=== PATIENT | male | born 1950 | race Caucasian/White ===

== ENCOUNTER 2017-03-24 06:28 | Outpatient (CLI) | payer MEDICARE, OTHER ==
[~2017-03-24] VITALS: Ht 177.8 cm; Wt 82.6 kg
[~2017-03-24 06:28] MED LIST: ATOR1TAB21 PO; DIGO0.12 PO; DIGO0.25 PO; ELIQ5TAB PO; LISI20TA3 PO; METF500T13 PO; RANI150C PO; TYLE650T35 PO
[2017-03-24] MEDS ORDERED: NS 1,000 ML IV ONE (07:15)
[2017-03-24] MEDS ORDERED: PROPOFOL 200 MG/20 ML VIAL As Ordered ONE (07:35)
[2017-03-24] MEDS ORDERED: LIDOCAINE 2% INJ 100 MG/5 ML SDV (FOR ANES.) As Ordered ONE (07:35)
--- NOTE | 2017-03-24 07:51 | ROOR ---
Patient Name: Carlos Eduardo Ballard Procedure Date: 03/24/2017 7:33 AM Date of : 1950 Age: 67 Room: [facility] Gender: Male Note Status: Finalized Procedure: Colonoscopy Indications: Screening in patient at increased risk: Colorectal cancer in brother before age 60, High risk colon cancer surveillance: Personal history of colonic polyps, Last colonoscopy: September 2010 Providers: Shaw DALEY MD Referring MD: GARFIELD JO Requesting Provider: Medicines: Monitored Anesthesia Care Complications: No immediate complications. Procedure: Pre-Anesthesia Assessment: - The heart rate, respiratory rate, oxygen saturations, blood pressure, adequacy of pulmonary ventilation, and response to care were monitored throughout the procedure. The Colonoscope was introduced through the anus and advanced to the cecum, identified by appendiceal orifice and ileocecal valve. The colonoscopy was performed without difficulty. The patient tolerated the procedure well. The quality of the bowel preparation was good. Findings: The perianal and digital rectal examinations were normal. The entire examined colon appeared normal. Impression: - The entire examined colon is normal. - No specimens collected. Recommendation: - Resume Eliquis (apixaban) at prior dose today. - Repeat colonoscopy in 5 years for screening purposes. Shaw Daley MD Shaw DALEY MD 03/24/2017 7:50:37 AM This report has been signed electronically. Number of Addenda: 0 Note Initiated On: 03/24/2017 7:33 AM Estimated Blood Loss: Estimated blood loss: none.
[2017-03-24 08:20] VITALS: BP 134/87
== END 2017-03-24 08:21 | disposition home or self-care (01) ==
LOC: M OPP 06:28
PROVIDERS: ATTEND Internal Medicine Gastroenterology
DX: Z12.11 Encounter for screening for malignant neoplasm of colon (principal); Z86.010 Personal history of colon polyps; Z80.0 Family history of malignant neoplasm of digestive organs; I48.91 Unspecified atrial fibrillation; E11.9 Type 2 diabetes mellitus without complications; I10 Essential (primary) hypertension; K21.9 Gastro-esophageal reflux disease without esophagitis; E78.00 Pure hypercholesterolemia, unspecified; Z79.84 Long term (current) use of oral hypoglycemic drugs; Z79.899 Other long term (current) drug therapy

== ENCOUNTER → 2018-05-10 | Outpatient (REF) | payer MEDICARE, OTHER ==
[2018-05-10 16:43] LABS: BASO % 0.1 % (0.0-1.0); EOS % 0.1 % (0.0-3.0); HEMATOCRIT 48.8 % (42.0-52.0); HEMOGLOBIN 16.4 g/dl (13.5-17.5); IMMATURE GRANULOCYTE % 0.4 % (0-3.0); LYMPH % 29.8 % (24.0-44.0); MEAN CORPUSCULAR HGB CONC 33.6 g/dl (32.0-36.5); MEAN CORPUSCULAR VOLUME 95.3 fl (80.0-96.0); MONO # 0.6 10^3/uL (0.0-0.8); MONO % 9.5 % (0.0-5.0); NEUTROPHILS % 60.1 % (36.0-66.0); PLATELET COUNT, AUTOMATED 305 10^3/uL (150-450); RED BLOOD COUNT 5.12 10^6/uL (4.30-6.10); RED CELL DISTRIBUTION WIDTH 13.2 % (11.5-14.5); WHITE BLOOD COUNT 6.7 10^3/uL (4.0-10.0)
[2018-05-10 17:09] LABS: ALBUMIN 4.1 GM/DL (3.2-5.2); ALBUMIN/GLOBULIN RATIO 1.11 (1.00-1.93); ALKALINE PHOSPHATASE 67 U/L (45-117); ALT/SGPT 26 U/L (12-78); ANION GAP 6 MEQ/L (8-16); AST/SGOT 20 U/L (7-37); BILIRUBIN,TOTAL 0.3 MG/DL (0.2-1.0); BLOOD UREA NITROGEN 15 MG/DL (7-18); C REACTIVE PROTEIN QUANTITATIV 0.38 MG/DL (0.00-0.30); CALCIUM LEVEL 9.1 MG/DL (8.8-10.2); CARBON DIOXIDE LEVEL 32 MEQ/L (21-32); CHLORIDE LEVEL 101 MEQ/L (98-107); CREATININE FOR GFR 0.93 MG/DL (0.70-1.30); GLOMERULAR FILTRATION RATE > 60.0 (>49); GLUCOSE, FASTING 79 MG/DL (70-100); POTASSIUM SERUM 4.4 MEQ/L (3.5-5.1); SODIUM LEVEL 139 MEQ/L (136-145); TOTAL PROTEIN 7.8 GM/DL (6.4-8.2)
[2018-05-10 19:05] LABS: ERYTHROCYTE SEDIMENTATION RATE 3 mm/hr (0-20)
== END ==
LOC: M SFHCLERA 13:56
DX: M19.90 Unspecified osteoarthritis, unspecified site (principal); R76.8 Other specified abnormal immunological findings in serum; I73.00 Raynaud's syndrome without gangrene
CPT/HCPCS: 80053

== ENCOUNTER → 2018-05-10 | Outpatient (CLI) | payer MEDICARE, OTHER | LOC: M LRY 14:08 | DX: M25.741 Osteophyte, right hand (principal); M25.742 Osteophyte, left hand; R93.7 Abnormal findings on diagnostic imaging of other parts of musculoskeletal system; M19.041 Primary osteoarthritis, right hand; M19.042 Primary osteoarthritis, left hand | CPT/HCPCS: 73130; 80053 ==

== ENCOUNTER → 2018-06-28 | Outpatient (REF) | payer MEDICARE, OTHER | LOC: M SFHCPLAZ 16:13 | PROVIDERS: ATTEND Internal Medicine Rheumatology | DX: M05.79 Rheumatoid arthritis with rheumatoid factor of multiple sites without organ or systems involvement (principal) ==

== ENCOUNTER 2018-07-13 21:06 | Emergency (ER) | payer MEDICARE, OTHER ==
[~2018-07-13] VITALS: Ht 177.8 cm; Wt 82.7 kg
[2018-07-13] MEDS ORDERED: FOLI800C PO (21:15)
[2018-07-13] MEDS ORDERED: METH2.5T48 PO (21:15)
[2018-07-13] MEDS ORDERED: AMLO25TA PO (21:15)
[2018-07-13] MEDS ORDERED: AUGM875T28 PO (21:35)
[2018-07-13] MEDS ORDERED: AUGMENTIN 875 MG TAB PO ONE (21:45)
[2018-07-13] MEDS ORDERED: NORCO 5/325MG TABLET (BULK FOR ED) PO ONE (21:45)
[2018-07-13 21:49] VITALS: BP 150/81
== END 2018-07-13 21:57 | disposition home or self-care (01) ==
LOC: M ED 21:06
DX: K04.7 Periapical abscess without sinus (principal); I48.91 Unspecified atrial fibrillation; I10 Essential (primary) hypertension; Z79.01 Long term (current) use of anticoagulants; Z79.899 Other long term (current) drug therapy

== ENCOUNTER → 2018-07-19 | Outpatient (CLI) | payer MEDICARE, OTHER ==
[~2018-07-19] MED LIST changes: +AMLO25TA PO; +AUGM875T28 PO; +FOLI800C PO; +METH2.5T48 PO
[2018-07-19 10:52] LABS: BASO % 0.2 % (0.0-1.0); EOS # 0.1 10^3/uL (0.0-0.50); HEMATOCRIT 43.4 % (42.0-52.0); LYMPH # 2.1 10^3/uL (1.5-4.5); MEAN CORPUSCULAR HEMOGLOBIN 32.3 pg (27.0-33.0); MEAN CORPUSCULAR HGB CONC 34.6 g/dl (32.0-36.5); MEAN CORPUSCULAR VOLUME 93.5 fl (80.0-96.0); MONO # 0.7 10^3/uL (0.0-0.8); MONO % 11.3 % (0.0-5.0); NEUTROPHILS # 3.1 10^3/uL (1.8-7.7); NEUTROPHILS % 52.3 % (36.0-66.0); PLATELET COUNT, AUTOMATED 303 10^3/uL (150-450); RED BLOOD COUNT 4.64 10^6/uL (4.30-6.10); WHITE BLOOD COUNT 5.9 10^3/uL (4.0-10.0)
[2018-07-19 11:18] LABS: ERYTHROCYTE SEDIMENTATION RATE 27 mm/hr (0-20)
[2018-07-19 11:22] LABS: ALBUMIN 3.9 GM/DL (3.2-5.2); ALT/SGPT 21 U/L (12-78); BILIRUBIN,TOTAL 0.4 MG/DL (0.2-1.0); BLOOD UREA NITROGEN 19 MG/DL (7-18); CALCIUM LEVEL 8.9 MG/DL (8.8-10.2); CARBON DIOXIDE LEVEL 30 MEQ/L (21-32); CHLORIDE LEVEL 102 MEQ/L (98-107); GLOMERULAR FILTRATION RATE > 60.0 (>49); GLUCOSE, FASTING 109 MG/DL (70-100); POTASSIUM SERUM 4.3 MEQ/L (3.5-5.1); SODIUM LEVEL 137 MEQ/L (136-145); TOTAL PROTEIN 7.4 GM/DL (6.4-8.2)
[2018-07-19 15:00] LABS: HEPATITIS B SURFACE ANTIGEN NEGATIVE (NEGATIVE)
== END ==
LOC: M LAB 10:20
PROVIDERS: ATTEND Internal Medicine Rheumatology
DX: M05.79 Rheumatoid arthritis with rheumatoid factor of multiple sites without organ or systems involvement (principal)

== ENCOUNTER → 2018-08-16 | Outpatient (CLI) | payer MEDICARE, OTHER ==
[2018-08-16 13:30] LABS: BASO % 0.3 % (0.0-1.0); EOS % 0.6 % (0.0-3.0); HEMATOCRIT 43.9 % (42.0-52.0); HEMOGLOBIN 15.1 g/dl (13.5-17.5); LYMPH % 30.5 % (24.0-44.0); MEAN CORPUSCULAR HEMOGLOBIN 32.5 pg (27.0-33.0); MEAN CORPUSCULAR HGB CONC 34.4 g/dl (32.0-36.5); MEAN CORPUSCULAR VOLUME 94.4 fl (80.0-96.0); MONO # 0.6 10^3/uL (0.0-0.8); MONO % 9.1 % (0.0-5.0); NEUTROPHILS # 3.9 10^3/uL (1.8-7.7); PLATELET COUNT, AUTOMATED 279 10^3/uL (150-450); RED BLOOD COUNT 4.65 10^6/uL (4.30-6.10); WHITE BLOOD COUNT 6.6 10^3/uL (4.0-10.0)
[2018-08-16 13:46] LABS: ALBUMIN 3.9 GM/DL (3.2-5.2); ALT/SGPT 33 U/L (12-78); BILIRUBIN,TOTAL 0.4 MG/DL (0.2-1.0); BLOOD UREA NITROGEN 19 MG/DL (7-18); C REACTIVE PROTEIN QUANTITATIV 0.37 MG/DL (0.00-0.30); CALCIUM LEVEL 8.9 MG/DL (8.8-10.2); CARBON DIOXIDE LEVEL 29 MEQ/L (21-32); CHLORIDE LEVEL 102 MEQ/L (98-107); CREATININE FOR GFR 1.11 MG/DL (0.70-1.30); GLOMERULAR FILTRATION RATE > 60.0 (>49); GLUCOSE, FASTING 98 MG/DL (70-100); POTASSIUM SERUM 4.2 MEQ/L (3.5-5.1); SODIUM LEVEL 138 MEQ/L (136-145); TOTAL PROTEIN 7.6 GM/DL (6.4-8.2)
[2018-08-16 14:10] LABS: ERYTHROCYTE SEDIMENTATION RATE 13 mm/hr (0-20)
== END ==
LOC: M LAB 12:10
PROVIDERS: ATTEND Internal Medicine Rheumatology
DX: M05.79 Rheumatoid arthritis with rheumatoid factor of multiple sites without organ or systems involvement (principal)

== ENCOUNTER → 2018-10-18 | Outpatient (CLI) | payer MEDICARE, OTHER ==
[2018-10-18 13:31] LABS: BASO % 0.3 % (0.0-1.0); EOS # 0.1 10^3/uL (0.0-0.50); EOS % 1.2 % (0.0-3.0); HEMATOCRIT 41.5 % (42.0-52.0); HEMOGLOBIN 14.1 g/dl (13.5-17.5); LYMPH # 2.9 10^3/uL (1.5-4.5); MEAN CORPUSCULAR HEMOGLOBIN 33.7 pg (27.0-33.0); MEAN CORPUSCULAR VOLUME 99.3 fl (80.0-96.0); MONO # 0.8 10^3/uL (0.0-0.8); MONO % 11.7 % (0.0-5.0); NEUTROPHILS # 2.8 10^3/uL (1.8-7.7); NEUTROPHILS % 42.6 % (36.0-66.0); PLATELET COUNT, AUTOMATED 279 10^3/uL (150-450); RED BLOOD COUNT 4.18 10^6/uL (4.30-6.10); WHITE BLOOD COUNT 6.6 10^3/uL (4.0-10.0)
[2018-10-18 14:58] LABS: ALBUMIN 3.8 GM/DL (3.2-5.2); ALT/SGPT 24 U/L (12-78); BILIRUBIN,TOTAL 0.3 MG/DL (0.2-1.0); BLOOD UREA NITROGEN 14 MG/DL (7-18); C REACTIVE PROTEIN QUANTITATIV 0.42 MG/DL (0.00-0.30); CALCIUM LEVEL 9.1 MG/DL (8.8-10.2); CARBON DIOXIDE LEVEL 28 MEQ/L (21-32); CHLORIDE LEVEL 105 MEQ/L (98-107); CREATININE FOR GFR 1.07 MG/DL (0.70-1.30); GLOMERULAR FILTRATION RATE > 60.0 (>49); GLUCOSE, FASTING 90 MG/DL (70-100); POTASSIUM SERUM 4.1 MEQ/L (3.5-5.1); SODIUM LEVEL 141 MEQ/L (136-145); TOTAL PROTEIN 7.1 GM/DL (6.4-8.2)
[2018-10-18 15:13] LABS: ERYTHROCYTE SEDIMENTATION RATE 19 mm/hr (0-20)
== END ==
LOC: M LAB 12:24
PROVIDERS: ATTEND Internal Medicine Rheumatology
DX: M05.79 Rheumatoid arthritis with rheumatoid factor of multiple sites without organ or systems involvement (principal)

== ENCOUNTER → 2018-11-14 | Outpatient (CLI) | payer MEDICARE, OTHER ==
[2018-11-14 11:52] LABS: CHOLESTEROL RISK RATIO 6.073 (<5)
== END ==
LOC: M LAB 10:09
PROVIDERS: ATTEND Physician Assistant
DX: E78.00 Pure hypercholesterolemia, unspecified (principal)

== ENCOUNTER → 2019-03-19 | Outpatient (CLI) | payer MEDICARE, OTHER ==
[~2019-03-19] MED LIST changes: +LISI20TA20 PO; -LISI20TA3 PO
[2019-03-19 11:44] LABS: BASO % 0.3 % (0.0-1.0); EOS # 0.1 10^3/uL (0.0-0.5); EOS % 1.1 % (0.0-3.0); HEMATOCRIT 43.7 % (42.0-52.0); HEMOGLOBIN 15.2 g/dl (13.5-17.5); LYMPH # 2.7 10^3/uL (1.5-5.0); LYMPH % 41.3 % (24.0-44.0); MEAN CORPUSCULAR HEMOGLOBIN 33.4 pg (27.0-33.0); MEAN CORPUSCULAR HGB CONC 34.8 g/dl (32.0-36.5); MONO # 0.7 10^3/uL (0.0-0.8); MONO % 10.7 % (0.0-5.0); NEUTROPHILS % 46.4 % (36.0-66.0); PLATELET COUNT, AUTOMATED 170 10^3/uL (150-450); RED BLOOD COUNT 4.55 10^6/uL (4.30-6.10); WHITE BLOOD COUNT 6.4 10^3/uL (4.0-10.0)
[2019-03-19 12:17] LABS: ALBUMIN 3.8 GM/DL (3.2-5.2); BILIRUBIN,TOTAL 0.5 MG/DL (0.2-1.0); C REACTIVE PROTEIN QUANTITATIV 0.33 MG/DL (0.00-0.30); CALCIUM LEVEL 9.5 MG/DL (8.8-10.2); CREATININE FOR GFR 1.28 MG/DL (0.70-1.30); GLOMERULAR FILTRATION RATE 59.1 (>42); POTASSIUM SERUM 4.3 MEQ/L (3.5-5.1); TOTAL PROTEIN 7.4 GM/DL (6.4-8.2)
[2019-03-19 12:27] LABS: ERYTHROCYTE SEDIMENTATION RATE 11 mm/hr (0-20)
== END ==
LOC: M LAB 10:41
PROVIDERS: ATTEND Internal Medicine Rheumatology
DX: M05.79 Rheumatoid arthritis with rheumatoid factor of multiple sites without organ or systems involvement (principal)

== ENCOUNTER → 2019-07-09 | Outpatient (REF) | payer MEDICARE, OTHER ==
[~2019-07-09] MED LIST changes: +FAMO1TAB26 PO
[2019-07-09 13:17] LABS: BASO % 0.3 % (0.0-1.0); EOS # 0.1 10^3/uL (0.0-0.5); EOS % 0.9 % (0.0-3.0); HEMATOCRIT 45.4 % (42.0-52.0); LYMPH % 45.4 % (24.0-44.0); MEAN CORPUSCULAR HEMOGLOBIN 32.7 pg (27.0-33.0); MEAN CORPUSCULAR VOLUME 98.9 fl (80.0-96.0); MONO # 0.8 10^3/uL (0.0-0.8); NEUTROPHILS # 2.7 10^3/uL (1.5-8.5); NEUTROPHILS % 41.1 % (36.0-66.0); PLATELET COUNT, AUTOMATED 145 10^3/uL (150-450); RED BLOOD COUNT 4.59 10^6/uL (4.30-6.10); WHITE BLOOD COUNT 6.7 10^3/uL (4.0-10.0)
[2019-07-09 13:27] LABS: ERYTHROCYTE SEDIMENTATION RATE QNS mm/hr (0-20)
[2019-07-09 15:01] LABS: ALBUMIN 4.1 GM/DL (3.2-5.2); ALT/SGPT 33 U/L (12-78); BILIRUBIN,TOTAL 0.4 MG/DL (0.2-1.0); BLOOD UREA NITROGEN 21 MG/DL (7-18); C REACTIVE PROTEIN QUANTITATIV < 0.30 MG/DL (0.00-0.30); CALCIUM LEVEL 9.2 MG/DL (8.8-10.2); CARBON DIOXIDE LEVEL 25 MEQ/L (21-32); CHLORIDE LEVEL 102 MEQ/L (98-107); CREATININE FOR GFR 1.13 MG/DL (0.70-1.30); GLOMERULAR FILTRATION RATE > 60.0 (>42); GLUCOSE, FASTING 129 MG/DL (70-100); HEPATITIS B SURFACE ANTIGEN NEGATIVE (NEGATIVE); HEPATITIS C VIRUS ABY INDEX < 0.0 INDEX (<0.8); POTASSIUM SERUM 4.4 MEQ/L (3.5-5.1); SODIUM LEVEL 137 MEQ/L (136-145); TOTAL PROTEIN 7.8 GM/DL (6.4-8.2)
== END ==
LOC: M SFHCRHEU 10:18
PROVIDERS: ATTEND Internal Medicine
DX: M05.79 Rheumatoid arthritis with rheumatoid factor of multiple sites without organ or systems involvement (principal)
CPT/HCPCS: 36415; 80053; 85025; 86140; 86480; 86704; 86803; 87340; G0463

== ENCOUNTER 2019-07-20 07:46 | Outpatient (CLI) | payer MEDICARE, OTHER ==
[~2019-07-20] VITALS: Ht 177.8 cm; Wt 87.0 kg
[~2019-07-20 07:46] MED LIST changes: -FAMO1TAB26 PO
[2019-07-20 07:57] VITALS: BP 139/80
[2019-07-20] MEDS ORDERED: diphenhydrAMINE 25 MG CAP PO ONE (08:00)
[2019-07-20] MEDS ORDERED: FAMO1TAB26 PO (08:09)
[2019-07-20] MEDS ORDERED: methylPREDNISolone INJ 125 MG/2 ML VIAL (J2930) IV PRN (08:30)
[2019-07-20] MEDS ORDERED: EPINEPHrine INJ 1 MG/ML 1ML VIAL IM PRN (08:30)
[2019-07-20] MEDS ORDERED: diphenhydrAMINE INJ 50MG/ML VIAL (J1200) IV PRN (08:30)
[2019-07-20] MEDS ORDERED: ABATACEPT 750 MG OVER 30 MINUTES IV ONE ×2 (08:30)
[2019-07-20] MEDS ORDERED: NS 1,000 ML IV SCH (08:30)
[2019-07-20] MEDS ORDERED: ACETAMINOPHEN 650MG ER TAB (TYLENOL ARTHRITIS) PO ONE (08:30)
[2019-07-20] MEDS ORDERED: ALBUTEROL SULFATE 2.5 MG/0.5 ML INH NEB SOLN INH PRN (08:30)
[2019-07-20 09:30] VITALS: BP 131/76
[2019-07-20 10:10] VITALS: BP 122/74
== END 2019-07-20 10:10 | disposition home or self-care (01) ==
LOC: M INFU 07:46
PROVIDERS: ATTEND Internal Medicine
DX: M05.79 Rheumatoid arthritis with rheumatoid factor of multiple sites without organ or systems involvement (principal)
CPT/HCPCS: 96365; J0129

== ENCOUNTER 2019-08-03 07:50 | Outpatient (CLI) | payer MEDICARE, OTHER ==
[~2019-08-03] VITALS: Ht 221 cm; Wt 87.0 kg
[~2019-08-03 07:50] MED LIST changes: +FAMO1TAB26 PO
[2019-08-03 07:55] VITALS: BP 125/74
[2019-08-03] MEDS ORDERED: ACETAMINOPHEN TAB 650MG DOSE (2X325MG) PO ONE (08:15)
[2019-08-03] MEDS ORDERED: diphenhydrAMINE 25 MG CAP PO ONE (08:15)
[2019-08-03] MEDS ORDERED: methylPREDNISolone INJ 125 MG/2 ML VIAL (J2930) IV PRN (09:00)
[2019-08-03] MEDS ORDERED: ABATACEPT 750 MG OVER 30 MINUTES IV ONE ×2 (09:00)
[2019-08-03] MEDS ORDERED: EPINEPHrine INJ 1 MG/ML 1ML VIAL IM PRN (09:00)
[2019-08-03] MEDS ORDERED: ALBUTEROL SULFATE 2.5 MG/0.5 ML INH NEB SOLN INH PRN (09:00)
[2019-08-03] MEDS ORDERED: diphenhydrAMINE INJ 50MG/ML VIAL (J1200) IV PRN (09:00)
[2019-08-03 09:30] VITALS: BP 134/76
== END 2019-08-03 09:30 | disposition home or self-care (01) ==
LOC: M INFU 07:50
PROVIDERS: ATTEND Internal Medicine
DX: M05.79 Rheumatoid arthritis with rheumatoid factor of multiple sites without organ or systems involvement (principal)
CPT/HCPCS: 96365; J0129

== ENCOUNTER 2019-08-17 07:56 | Outpatient (CLI) | payer MEDICARE, OTHER ==
[~2019-08-17] VITALS: Ht 177.8 cm; Wt 87.0 kg
[2019-08-17] MEDS ORDERED: ALBUTEROL SULFATE 2.5 MG/0.5 ML INH NEB SOLN INH PRN (08:00)
[2019-08-17] MEDS ORDERED: ABATACEPT 750 MG OVER 30 MINUTES IV ONE ×2 (08:00)
[2019-08-17] MEDS ORDERED: EPINEPHrine INJ 1 MG/ML 1ML VIAL IM PRN (08:00)
[2019-08-17] MEDS ORDERED: diphenhydrAMINE INJ 50MG/ML VIAL (J1200) IV PRN (08:00)
[2019-08-17] MEDS ORDERED: methylPREDNISolone INJ 125 MG/2 ML VIAL (J2930) IV PRN (08:00)
[2019-08-17 08:12] VITALS: BP 153/76
[2019-08-17] MEDS ORDERED: diphenhydrAMINE 25 MG CAP PO ONE (08:15)
[2019-08-17] MEDS ORDERED: ACETAMINOPHEN TAB 650MG DOSE (2X325MG) PO ONE (08:15)
[2019-08-17] MEDS ORDERED: NS 1,000 ML IV PRN (08:15)
[2019-08-17 09:15] VITALS: BP 133/78
== END 2019-08-17 09:15 | disposition home or self-care (01) ==
LOC: M INFU 07:56
PROVIDERS: ATTEND Internal Medicine
DX: M05.79 Rheumatoid arthritis with rheumatoid factor of multiple sites without organ or systems involvement (principal)
CPT/HCPCS: 96365; J0129

== ENCOUNTER → 2019-09-07 | Outpatient (CLI) | payer MEDICARE, OTHER ==
[2019-09-07 11:10] LABS: BASO % 0.3 % (0.0-1.0); EOS # 0.1 10^3/uL (0.0-0.5); HEMATOCRIT 44.5 % (42.0-52.0); HEMOGLOBIN 15.2 g/dl (13.5-17.5); LYMPH # 3.7 10^3/uL (1.5-5.0); LYMPH % 46.9 % (24.0-44.0); MEAN CORPUSCULAR HEMOGLOBIN 32.8 pg (27.0-33.0); MEAN CORPUSCULAR HGB CONC 34.2 g/dl (32.0-36.5); MEAN CORPUSCULAR VOLUME 96.1 fl (80.0-96.0); MONO # 0.9 10^3/uL (0.0-0.8); MONO % 10.9 % (0.0-5.0); NEUTROPHILS # 3.2 10^3/uL (1.5-8.5); NEUTROPHILS % 40.6 % (36.0-66.0); PLATELET COUNT, AUTOMATED 205 10^3/uL (150-450); RED BLOOD COUNT 4.63 10^6/uL (4.30-6.10); WHITE BLOOD COUNT 7.9 10^3/uL (4.0-10.0)
[2019-09-07 11:33] LABS: ALBUMIN 3.7 GM/DL (3.2-5.2); ALT/SGPT 34 U/L (12-78); BILIRUBIN,TOTAL 0.4 MG/DL (0.2-1.0); BLOOD UREA NITROGEN 22 MG/DL (7-18); C REACTIVE PROTEIN QUANTITATIV < 0.30 MG/DL (0.00-0.30); CARBON DIOXIDE LEVEL 33 MEQ/L (21-32); CHLORIDE LEVEL 101 MEQ/L (98-107); CREATININE FOR GFR 1.18 MG/DL (0.70-1.30); GLOMERULAR FILTRATION RATE > 60.0 (>42); GLUCOSE, FASTING 167 MG/DL (70-100); POTASSIUM SERUM 4.3 MEQ/L (3.5-5.1); SODIUM LEVEL 137 MEQ/L (136-145)
[2019-09-07 12:17] LABS: ERYTHROCYTE SEDIMENTATION RATE 8 mm/hr (0-20)
== END ==
LOC: M LAB 09:01
PROVIDERS: ATTEND Internal Medicine
DX: M05.79 Rheumatoid arthritis with rheumatoid factor of multiple sites without organ or systems involvement (principal)

== ENCOUNTER 2019-09-14 07:19 | Outpatient (CLI) | payer MEDICARE, OTHER ==
[~2019-09-14] VITALS: Ht 177.8 cm; Wt 87.0 kg
[2019-09-14 07:20] VITALS: BP 138/88
[2019-09-14] MEDS ORDERED: diphenhydrAMINE 25 MG CAP PO ONE (08:00)
[2019-09-14] MEDS ORDERED: ACETAMINOPHEN TAB 650MG DOSE (2X325MG) PO ONE (08:00)
[2019-09-14] MEDS ORDERED: methylPREDNISolone INJ 125 MG/2 ML VIAL (J2930) IV PRN (08:30)
[2019-09-14] MEDS ORDERED: ABATACEPT 750 MG OVER 30 MINUTES IV ONE ×2 (08:30)
[2019-09-14] MEDS ORDERED: ALBUTEROL SULFATE 2.5 MG/0.5 ML INH NEB SOLN INH PRN (08:30)
[2019-09-14] MEDS ORDERED: diphenhydrAMINE INJ 50MG/ML VIAL (J1200) IV PRN (08:30)
[2019-09-14] MEDS ORDERED: EPINEPHrine INJ 1 MG/ML 1ML VIAL IM PRN (08:30)
[2019-09-14] MEDS ORDERED: METH2.5T48 PO (08:32)
[2019-09-14 09:00] VITALS: BP 128/68
== END 2019-09-14 09:00 | disposition home or self-care (01) ==
LOC: M INFU 07:19
PROVIDERS: ATTEND Internal Medicine
DX: M05.79 Rheumatoid arthritis with rheumatoid factor of multiple sites without organ or systems involvement (principal)
CPT/HCPCS: 96365; J0129

== ENCOUNTER → 2019-10-09 | Outpatient (CLI) | payer MEDICARE, OTHER ==
--- NOTE | 2019-10-09 15:06 | REPPI ---
BILATERAL KNEE SERIES: Five views of each knee performed. No fracture or dislocation is seen. The joint spaces are unremarkable without significant arthritic change. No joint effusion is seen bilaterally. IMPRESSION: Negative bilateral knee series. Electronically Signed by Jelani Andres MD 10/09/2019 03:34 P
== END ==
LOC: M PLAIMG 13:43
PROVIDERS: ATTEND Internal Medicine
DX: M05.79 Rheumatoid arthritis with rheumatoid factor of multiple sites without organ or systems involvement (principal)

== ENCOUNTER 2019-10-12 07:20 | Outpatient (CLI) | payer MEDICARE, OTHER ==
[~2019-10-12] VITALS: Ht 177.8 cm; Wt 87.0 kg
[2019-10-12 07:25] VITALS: BP 140/69
[2019-10-12] MEDS ORDERED: diphenhydrAMINE 50MG/ML VIAL (J1200) IV PRN (07:45)
[2019-10-12] MEDS ORDERED: NS 1,000 ML IV SCH (07:45)
[2019-10-12] MEDS ORDERED: EPINEPHrine INJ 1 MG/ML 1ML AMP IM PRN (07:45)
[2019-10-12] MEDS ORDERED: ACETAMINOPHEN TAB 650MG DOSE (2X325MG) PO ONE (07:45)
[2019-10-12] MEDS ORDERED: ALBUTEROL SULFATE 2.5 MG/0.5 ML INH NEB SOLN INH PRN (07:45)
[2019-10-12] MEDS ORDERED: methylPREDNISolone INJ 125 MG/2 ML VIAL (J2930) IV PRN (07:45)
[2019-10-12] MEDS ORDERED: ABATACEPT 750 MG OVER 30 MINUTES IV ONE ×2 (07:45)
[2019-10-12] MEDS ORDERED: diphenhydrAMINE 25MG CAP PO ONE (07:45)
[2019-10-12 09:19] VITALS: BP 132/70
== END 2019-10-12 09:20 | disposition home or self-care (01) ==
LOC: M INFU 07:20
PROVIDERS: ATTEND Internal Medicine
DX: M05.79 Rheumatoid arthritis with rheumatoid factor of multiple sites without organ or systems involvement (principal)
CPT/HCPCS: 96365; J0129

== ENCOUNTER 2019-11-09 07:22 | Outpatient (CLI) | payer MEDICARE, OTHER ==
[~2019-11-09] VITALS: Ht 177.8 cm; Wt 87.0 kg
[2019-11-09 07:25] VITALS: BP 131/6
[2019-11-09] MEDS ORDERED: ALBUTEROL SULFATE 2.5 MG/0.5 ML INH NEB SOLN INH PRN (07:30)
[2019-11-09] MEDS ORDERED: methylPREDNISolone INJ 125 MG/2 ML VIAL (J2930) IV PRN (07:30)
[2019-11-09] MEDS ORDERED: EPINEPHrine INJ 1 MG/ML 1ML AMP IM PRN (07:30)
[2019-11-09] MEDS ORDERED: diphenhydrAMINE 50MG/ML VIAL (J1200) IV PRN (07:30)
[2019-11-09] MEDS ORDERED: ABATACEPT 750 MG OVER 30 MINUTES IV ONE ×2 (07:45)
[2019-11-09] MEDS ORDERED: diphenhydrAMINE 25MG CAP PO ONE (07:45)
[2019-11-09] MEDS ORDERED: ACETAMINOPHEN TAB 650MG DOSE (2X325MG) PO ONE (07:45)
[2019-11-09 08:55] VITALS: BP 122/67
[2019-11-09 09:20] VITALS: BP 144/84
== END 2019-11-09 08:55 | disposition home or self-care (01) ==
LOC: M INFU 07:22
PROVIDERS: ATTEND Internal Medicine
DX: M06.9 Rheumatoid arthritis, unspecified (principal)
CPT/HCPCS: 96365; J0129

== ENCOUNTER 2019-12-07 15:05 | Outpatient (CLI) | payer MEDICARE, OTHER ==
[~2019-12-07] VITALS: Ht 177.8 cm; Wt 87.0 kg
[2019-12-07] MEDS ORDERED: diphenhydrAMINE 25MG CAP PO ONE (15:30)
[2019-12-07] MEDS ORDERED: ACETAMINOPHEN TAB 650MG DOSE (2X325MG) PO ONE (15:30)
[2019-12-07 15:31] VITALS: BP 128/67
[2019-12-07] MEDS ORDERED: EPINEPHrine INJ 1 MG/ML 1ML AMP IM PRN (16:00)
[2019-12-07] MEDS ORDERED: methylPREDNISolone INJ 125 MG/2 ML VIAL (J2930) IV PRN (16:00)
[2019-12-07] MEDS ORDERED: ALBUTEROL SULFATE 2.5 MG/0.5 ML INH NEB SOLN INH PRN (16:00)
[2019-12-07] MEDS ORDERED: diphenhydrAMINE 50MG/ML VIAL (J1200) IV PRN (16:00)
[2019-12-07] MEDS ORDERED: ABATACEPT 750 MG OVER 30 MINUTES IV ONE ×2 (16:00)
[2019-12-07 16:33] VITALS: BP 118/65
== END 2019-12-07 16:30 | disposition home or self-care (01) ==
LOC: M INFU 15:05
PROVIDERS: ATTEND Internal Medicine
DX: M06.9 Rheumatoid arthritis, unspecified (principal)
CPT/HCPCS: 96365; J0129

== ENCOUNTER → 2020-01-15 | Outpatient (CLI) | payer MEDICARE, OTHER ==
[~2020-01-15] MED LIST changes: +ACET650T61 PO; -TYLE650T35 PO
[2020-01-15 10:55] LABS: BASO % 0.3 % (0.0-1.0); EOS # 0.1 10^3/uL (0.0-0.5); EOS % 0.9 % (0.0-3.0); HEMATOCRIT 43.2 % (42.0-52.0); HEMOGLOBIN 14.4 g/dl (13.5-17.5); LYMPH # 2.9 10^3/uL (1.5-5.0); LYMPH % 36.4 % (24.0-44.0); MEAN CORPUSCULAR HEMOGLOBIN 32.7 pg (27.0-33.0); MEAN CORPUSCULAR HGB CONC 33.3 g/dl (32.0-36.5); MEAN CORPUSCULAR VOLUME 98.2 fl (80.0-96.0); MONO # 0.7 10^3/uL (0.0-0.8); MONO % 8.7 % (0.0-5.0); NEUTROPHILS # 4.2 10^3/uL (1.5-8.5); NEUTROPHILS % 53.4 % (36.0-66.0); PLATELET COUNT, AUTOMATED 262 10^3/uL (150-450); WHITE BLOOD COUNT 7.8 10^3/uL (4.0-10.0)
[2020-01-15 11:21] LABS: ERYTHROCYTE SEDIMENTATION RATE 12 mm/hr (0-20)
[2020-01-15 11:26] LABS: ALBUMIN 3.8 GM/DL (3.2-5.2); ALT/SGPT 29 U/L (12-78); BILIRUBIN,TOTAL 0.4 MG/DL (0.2-1.0); BLOOD UREA NITROGEN 22 MG/DL (7-18); C REACTIVE PROTEIN QUANTITATIV 0.34 MG/DL (0.00-0.30); CARBON DIOXIDE LEVEL 30 MEQ/L (21-32); CHLORIDE LEVEL 104 MEQ/L (98-107); CREATININE FOR GFR 1.16 MG/DL (0.70-1.30); GLOMERULAR FILTRATION RATE > 60.0 (>42); GLUCOSE, FASTING 135 MG/DL (70-100); SODIUM LEVEL 137 MEQ/L (136-145); TOTAL PROTEIN 7.1 GM/DL (6.4-8.2)
== END ==
LOC: M LAB 08:47
PROVIDERS: ATTEND Internal Medicine
DX: M05.79 Rheumatoid arthritis with rheumatoid factor of multiple sites without organ or systems involvement (principal)

== ENCOUNTER 2020-02-01 07:30 | Outpatient (CLI) | payer MEDICARE, OTHER ==
[~2020-02-01 07:30] MED LIST changes: +ABATACEPT ONE
[2020-02-01] MEDS ORDERED: diphenhydrAMINE 25MG CAP As Ordered ONE (07:42)
[2020-02-01] MEDS ORDERED: ACETAMINOPHEN TAB 650MG DOSE (2X325MG) As Ordered ONE (07:42)
== END 2020-02-01 08:50 | disposition home or self-care (01) ==
LOC: M INFU 07:30
PROVIDERS: ATTEND Internal Medicine
DX: M05.79 Rheumatoid arthritis with rheumatoid factor of multiple sites without organ or systems involvement (principal)
CPT/HCPCS: 96365; J0129

== ENCOUNTER 2020-02-29 07:01 | Outpatient (CLI) | payer MEDICARE, OTHER ==
[~2020-02-29] VITALS: Ht 177.8 cm; Wt 87.0 kg
[~2020-02-29 07:01] MED LIST changes: -ABATACEPT ONE
[2020-02-29 07:05] VITALS: BP 137/79
[2020-02-29] MEDS ORDERED: diphenhydrAMINE 25MG CAP As Ordered ONE (07:41)
[2020-02-29] MEDS ORDERED: ACETAMINOPHEN TAB 650MG DOSE (2X325MG) As Ordered ONE ×2 (07:42→07:44)
[2020-02-29] MEDS ORDERED: EPINEPHrine INJ 1 MG/ML 1ML AMP IM PRN (08:00)
[2020-02-29] MEDS ORDERED: diphenhydrAMINE 25MG CAP PO ONE (08:00)
[2020-02-29] MEDS ORDERED: ACETAMINOPHEN TAB 650MG DOSE (2X325MG) PO ONE (08:00)
[2020-02-29] MEDS ORDERED: methylPREDNISolone 125MG 2ML VIAL IV PRN (08:00)
[2020-02-29] MEDS ORDERED: NS 1,000 ML IV SCH (08:00)
[2020-02-29] MEDS ORDERED: diphenhydrAMINE 50MG/ML VIAL (J1200) IV PRN (08:00)
[2020-02-29] MEDS ORDERED: ALBUTEROL SULFATE 2.5 MG/0.5 ML INH NEB SOLN INH PRN (08:00)
[2020-02-29] MEDS ORDERED: 0.22 MICRON FILTER (METHACHOLINE/OCREVUS) XX ONE (08:24)
[2020-02-29] MEDS ORDERED: ABATACEPT 750 MG OVER 30 MINUTES IV ONE ×2 (08:30)
[2020-02-29 09:15] VITALS: BP 122/83
== END 2020-02-29 09:15 | disposition home or self-care (01) ==
LOC: M INFU 07:01
PROVIDERS: ATTEND Internal Medicine
DX: M05.79 Rheumatoid arthritis with rheumatoid factor of multiple sites without organ or systems involvement (principal)
CPT/HCPCS: 96365; J0129

== ENCOUNTER 2020-03-28 07:44 | Outpatient (CLI) | payer MEDICARE, OTHER ==
[~2020-03-28] VITALS: Ht 177.8 cm; Wt 87.0 kg
[2020-03-28 07:55] VITALS: BP 136/74
[2020-03-28] MEDS: diphenhydrAMINE 25MG CAP PO ONE (08:00)
[2020-03-28] MEDS ORDERED: diphenhydrAMINE 50MG/ML VIAL (J1200) IV PRN (08:00)
[2020-03-28] MEDS ORDERED: ALBUTEROL SULFATE 2.5 MG/0.5 ML INH NEB SOLN INH PRN (08:00)
[2020-03-28] MEDS: ACETAMINOPHEN TAB 650MG DOSE (2X325MG) PO ONE (08:00)
[2020-03-28] MEDS ORDERED: methylPREDNISolone 125MG 2ML VIAL IV PRN (08:00)
[2020-03-28] MEDS ORDERED: EPINEPHrine INJ 1 MG/ML 1ML AMP IM PRN (08:00)
[2020-03-28] MEDS ORDERED: NS 1,000 ML IV SCH (08:00)
[2020-03-28] MEDS: ABATACEPT 750 MG OVER 30 MINUTES IV ONE ×2 (08:22)
[2020-03-28 09:01] VITALS: BP 124/78
== END 2020-03-28 09:00 | disposition home or self-care (01) ==
LOC: M INFU 07:44
PROVIDERS: ATTEND Internal Medicine
DX: M05.79 Rheumatoid arthritis with rheumatoid factor of multiple sites without organ or systems involvement (principal)
CPT/HCPCS: 96365; J0129

== ENCOUNTER 2020-04-25 07:43 | Outpatient (CLI) | payer MEDICARE, OTHER ==
[~2020-04-25] VITALS: Ht 180.3 cm; Wt 87.0 kg
[2020-04-25 07:50] VITALS: BP 137/79
[2020-04-25 07:56] VITALS: BP 137/79
[2020-04-25] MEDS ORDERED: diphenhydrAMINE 25MG CAP PO ONE (08:00)
[2020-04-25] MEDS ORDERED: methylPREDNISolone 125MG 2ML VIAL IV PRN (08:00)
[2020-04-25] MEDS ORDERED: diphenhydrAMINE 50MG/ML VIAL (J1200) IV PRN (08:00)
[2020-04-25] MEDS ORDERED: EPINEPHrine INJ 1 MG/ML 1ML AMP IM PRN (08:00)
[2020-04-25] MEDS ORDERED: ALBUTEROL SULFATE 2.5 MG/0.5 ML INH NEB SOLN INH PRN (08:00)
[2020-04-25] MEDS ORDERED: ACETAMINOPHEN TAB 650MG DOSE (2X325MG) PO ONE (08:00)
[2020-04-25] MEDS ORDERED: ABATACEPT 750 MG OVER 30 MINUTES IV ONE ×2 (08:00)
[2020-04-25] MEDS ORDERED: NS 1,000 ML IV SCH (08:00)
[2020-04-25 08:53] VITALS: BP 128/64
== END 2020-04-25 09:00 | disposition home or self-care (01) ==
LOC: M INFU 07:43
PROVIDERS: ATTEND Internal Medicine
DX: M05.79 Rheumatoid arthritis with rheumatoid factor of multiple sites without organ or systems involvement (principal)
CPT/HCPCS: 36415; 80053; 85027; 85652; 86140; 96365; J0129

== ENCOUNTER → 2020-04-25 | Outpatient (CLI) | payer MEDICARE, OTHER ==
[2020-04-25 09:28] LABS: HEMATOCRIT 45.4 % (42.0-52.0); HEMOGLOBIN 15.3 g/dl (13.5-17.5); MEAN CORPUSCULAR HEMOGLOBIN 32.1 pg (27.0-33.0); MEAN CORPUSCULAR HGB CONC 33.7 g/dl (32.0-36.5); MEAN CORPUSCULAR VOLUME 95.2 fl (80.0-96.0); PLATELET COUNT, AUTOMATED 284 10^3/uL (150-450); RED BLOOD COUNT 4.77 10^6/uL (4.30-6.10); WHITE BLOOD COUNT 8.4 10^3/uL (4.0-10.0)
[2020-04-25 09:54] LABS: ALBUMIN 3.9 GM/DL (3.2-5.2); BILIRUBIN,TOTAL 0.4 MG/DL (0.2-1.0); C REACTIVE PROTEIN QUANTITATIV 0.4 MG/DL (0.00-0.30); CALCIUM LEVEL 9.3 MG/DL (8.8-10.2); CREATININE FOR GFR 1.32 MG/DL (0.70-1.30); GLOMERULAR FILTRATION RATE 56.9 (>42); POTASSIUM SERUM 4.1 MEQ/L (3.5-5.1); TOTAL PROTEIN 7.5 GM/DL (6.4-8.2)
[2020-04-25 10:02] LABS: ERYTHROCYTE SEDIMENTATION RATE 11 mm/hr (0-20)
== END ==
LOC: M LAB 08:59
PROVIDERS: ATTEND Internal Medicine Rheumatology
DX: M06.9 Rheumatoid arthritis, unspecified (principal)

== ENCOUNTER 2020-05-21 07:18 | Outpatient (CLI) | payer MEDICARE, OTHER ==
[~2020-05-21] VITALS: Ht 177.8 cm; Wt 87.0 kg
[2020-05-21 07:25] VITALS: BP 118/79
[2020-05-21] MEDS ORDERED: EPINEPHrine INJ 1 MG/ML 1ML AMP IM PRN (07:30)
[2020-05-21] MEDS ORDERED: ACETAMINOPHEN TAB 650MG DOSE (2X325MG) PO ONE (07:30)
[2020-05-21] MEDS ORDERED: diphenhydrAMINE 25MG CAP PO ONE (07:30)
[2020-05-21] MEDS ORDERED: methylPREDNISolone 125MG 2ML VIAL IV PRN (07:30)
[2020-05-21] MEDS ORDERED: ALBUTEROL SULFATE 2.5 MG/0.5 ML INH NEB SOLN INH PRN (07:30)
[2020-05-21] MEDS ORDERED: NS 1,000 ML IV SCH (07:30)
[2020-05-21] MEDS ORDERED: ABATACEPT 750 MG OVER 30 MINUTES IV ONE ×2 (07:30)
[2020-05-21] MEDS ORDERED: diphenhydrAMINE 50MG/ML VIAL (J1200) IV PRN (07:30)
[2020-05-21 08:05] VITALS: BP 118/79
[2020-05-21 08:43] VITALS: BP 136/88
== END 2020-05-21 08:45 | disposition home or self-care (01) ==
LOC: M INFU 07:18
PROVIDERS: ATTEND Internal Medicine
DX: M05.79 Rheumatoid arthritis with rheumatoid factor of multiple sites without organ or systems involvement (principal)
CPT/HCPCS: 96365; J0129

== ENCOUNTER 2020-06-18 07:19 | Outpatient (CLI) | payer MEDICARE, OTHER ==
[~2020-06-18] VITALS: Ht 177.8 cm; Wt 87.0 kg
[~2020-06-18 07:19] MED LIST changes: +ALBUTEROL SULFATE 2.5 MG/0.5 ML INH NEB SOLN INH PRN; +EPINEPHrine INJ 1 MG/ML 1ML AMP IM PRN; +diphenhydrAMINE 50MG/ML VIAL (J1200) IV PRN; +methylPREDNISolone 125MG 2ML VIAL IV PRN
[2020-06-18] MEDS ORDERED: ACETAMINOPHEN TAB 650MG DOSE (2X325MG) PO ONE (07:30)
[2020-06-18] MEDS ORDERED: NS 1,000 ML IV SCH (07:30)
[2020-06-18] MEDS ORDERED: ABATACEPT 750 MG OVER 30 MINUTES IV ONE ×4 (07:30)
[2020-06-18] MEDS ORDERED: diphenhydrAMINE 25MG CAP PO ONE (07:30)
[2020-06-18 07:40] VITALS: BP 119/69
[2020-06-18 07:46] VITALS: BP 119/69
[2020-06-18 08:27] VITALS: BP 120/79
== END 2020-06-18 08:30 | disposition home or self-care (01) ==
LOC: M INFU 07:19
PROVIDERS: ATTEND Internal Medicine
DX: M05.79 Rheumatoid arthritis with rheumatoid factor of multiple sites without organ or systems involvement (principal)
CPT/HCPCS: 96365; J0129

== ENCOUNTER 2020-07-16 07:17 | Outpatient (CLI) | payer MEDICARE, OTHER ==
[~2020-07-16] VITALS: Ht 177.8 cm; Wt 87.0 kg
[2020-07-16 07:15] VITALS: BP 120/60
[2020-07-16] MEDS ORDERED: ABATACEPT 750 MG OVER 30 MINUTES IV ONE ×2 (07:30)
[2020-07-16] MEDS ORDERED: diphenhydrAMINE 25MG CAP PO ONE (07:30)
[2020-07-16] MEDS ORDERED: ACETAMINOPHEN TAB 650MG DOSE (2X325MG) PO ONE (07:30)
[2020-07-16] MEDS ORDERED: NS 1,000 ML IV SCH (07:30)
[2020-07-16 08:35] VITALS: BP 112/66
== END 2020-07-16 08:45 | disposition home or self-care (01) ==
LOC: M INFU 07:17
PROVIDERS: ATTEND Internal Medicine
DX: M05.79 Rheumatoid arthritis with rheumatoid factor of multiple sites without organ or systems involvement (principal)
CPT/HCPCS: 96365; J0129

== ENCOUNTER 2020-08-22 07:21 | Outpatient (CLI) | payer MEDICARE, OTHER ==
[~2020-08-22 07:21] MED LIST changes: +ALBUTEROL SULFATE 2.5 MG/0.5 ML INH NEB SOLN INH PRN; +EPINEPHrine INJ 1 MG/ML 1ML AMP IM PRN; +diphenhydrAMINE 50MG/ML VIAL (J1200) IV PRN; +methylPREDNISolone 125MG 2ML VIAL IV PRN
[2020-08-22 07:30] VITALS: BP 137/70
[2020-08-22] MEDS ORDERED: ABATACEPT 750 MG OVER 30 MINUTES IV ONE ×2 (07:30)
[2020-08-22] MEDS ORDERED: diphenhydrAMINE 25MG CAP PO ONE (07:30)
[2020-08-22] MEDS ORDERED: ACETAMINOPHEN TAB 650MG DOSE (2X325MG) PO ONE (07:30)
== END 2020-08-22 08:00 | disposition home or self-care (01) ==
LOC: M INFU 07:21
PROVIDERS: ATTEND Internal Medicine
DX: M05.79 Rheumatoid arthritis with rheumatoid factor of multiple sites without organ or systems involvement (principal); Z53.8 Procedure and treatment not carried out for other reasons

== ENCOUNTER → 2020-08-22 | Outpatient (CLI) | payer MEDICARE, OTHER ==
[~2020-08-22] MED LIST changes: -ALBUTEROL SULFATE 2.5 MG/0.5 ML INH NEB SOLN INH PRN; -EPINEPHrine INJ 1 MG/ML 1ML AMP IM PRN; -diphenhydrAMINE 50MG/ML VIAL (J1200) IV PRN; -methylPREDNISolone 125MG 2ML VIAL IV PRN
[2020-08-22 08:39] LABS: BASO % 0.3 % (0.0-1.0); EOS # 0.1 10^3/uL (0.0-0.5); EOS % 0.9 % (0.0-3.0); HEMATOCRIT 43.7 % (42.0-52.0); HEMOGLOBIN 14.3 g/dl (13.5-17.5); LYMPH # 2.7 10^3/uL (1.5-5.0); LYMPH % 33.9 % (24.0-44.0); MEAN CORPUSCULAR HEMOGLOBIN 31.9 pg (27.0-33.0); MEAN CORPUSCULAR HGB CONC 32.7 g/dl (32.0-36.5); MEAN CORPUSCULAR VOLUME 97.5 fl (80.0-96.0); MONO # 0.8 10^3/uL (0.0-0.8); MONO % 9.9 % (2.0-8.0); NEUTROPHILS # 4.4 10^3/uL (1.5-8.5); NEUTROPHILS % 54.6 % (36.0-66.0); PLATELET COUNT, AUTOMATED 288 10^3/uL (150-450); RED BLOOD COUNT 4.48 10^6/uL (4.30-6.10)
[2020-08-22 09:02] LABS: ERYTHROCYTE SEDIMENTATION RATE 13 mm/hr (0-20)
[2020-08-22 09:11] LABS: ALBUMIN 4.1 GM/DL (3.2-5.2); ALT/SGPT 30 U/L (12-78); BILIRUBIN,TOTAL 0.2 MG/DL (0.2-1.0); BLOOD UREA NITROGEN 25 MG/DL (7-18); C REACTIVE PROTEIN QUANTITATIV 0.37 MG/DL (0.00-0.30); CALCIUM LEVEL 9.5 MG/DL (8.8-10.2); CARBON DIOXIDE LEVEL 31 MEQ/L (21-32); CHLORIDE LEVEL 105 MEQ/L (98-107); CREATININE FOR GFR 1.24 MG/DL (0.70-1.30); GLOMERULAR FILTRATION RATE > 60.0 (>42); GLUCOSE, FASTING 120 MG/DL (70-100); POTASSIUM SERUM 4.3 MEQ/L (3.5-5.1); SODIUM LEVEL 139 MEQ/L (136-145); TOTAL PROTEIN 7.4 GM/DL (6.4-8.2)
== END ==
LOC: M INFU 07:23 → M LAB 07:23
PROVIDERS: ATTEND Internal Medicine
DX: M05.79 Rheumatoid arthritis with rheumatoid factor of multiple sites without organ or systems involvement (principal)

== ENCOUNTER 2020-09-08 07:15 | Outpatient (CLI) | payer MEDICARE, OTHER ==
[~2020-09-08] VITALS: Ht 177.8 cm; Wt 87.0 kg
[2020-09-08 07:20] VITALS: BP 122/79
[2020-09-08] MEDS ORDERED: ABATACEPT 750 MG OVER 30 MINUTES IV ONE ×2 (07:30)
[2020-09-08] MEDS ORDERED: diphenhydrAMINE 25MG CAP PO ONE (07:30)
[2020-09-08] MEDS ORDERED: ACETAMINOPHEN 650MG ER TAB (TYLENOL ARTHRITIS) PO ONE (07:30)
[2020-09-08] MEDS ORDERED: NS 1,000 ML IV SCH (07:30)
[2020-09-08 08:28] VITALS: BP 108/78
== END 2020-09-08 08:25 | disposition home or self-care (01) ==
LOC: M INFU 07:15
PROVIDERS: ATTEND Internal Medicine
DX: M05.79 Rheumatoid arthritis with rheumatoid factor of multiple sites without organ or systems involvement (principal)
CPT/HCPCS: 96365; J0129

== ENCOUNTER 2020-10-06 06:50 | Outpatient (CLI) | payer MEDICARE, OTHER ==
[~2020-10-06] VITALS: Ht 177.8 cm; Wt 87.0 kg
[~2020-10-06 06:50] MED LIST changes: -ALBUTEROL SULFATE 2.5 MG/0.5 ML INH NEB SOLN INH PRN; -EPINEPHrine INJ 1 MG/ML 1ML AMP IM PRN; -diphenhydrAMINE 50MG/ML VIAL (J1200) IV PRN; -methylPREDNISolone 125MG 2ML VIAL IV PRN
[2020-10-06 06:56] VITALS: BP_SYST 157
[2020-10-06] MEDS ORDERED: NS 1,000 ML IV SCH (07:00)
[2020-10-06] MEDS ORDERED: ACETAMINOPHEN TAB 650MG DOSE (2X325MG) PO ONE (07:00)
[2020-10-06] MEDS ORDERED: diphenhydrAMINE 25MG CAP PO ONE (07:00)
[2020-10-06] MEDS ORDERED: ABATACEPT 750 MG OVER 30 MINUTES IV ONE ×2 (07:00)
[2020-10-06] MEDS ORDERED: diphenhydrAMINE 50MG/ML VIAL (J1200) IV PRN (07:01)
[2020-10-06] MEDS ORDERED: methylPREDNISolone 125MG 2ML VIAL IV PRN (07:01)
[2020-10-06] MEDS ORDERED: ALBUTEROL SULFATE 2.5 MG/0.5 ML INH NEB SOLN INH PRN (07:01)
[2020-10-06] MEDS ORDERED: EPINEPHrine INJ 1 MG/ML 1ML AMP IM PRN (07:01)
[2020-10-06 07:08] VITALS: BP_SYST 157
[2020-10-06 07:55] VITALS: BP 132/68
== END 2020-10-06 08:00 | disposition home or self-care (01) ==
LOC: M INFU 06:50
PROVIDERS: ATTEND Internal Medicine
DX: M05.79 Rheumatoid arthritis with rheumatoid factor of multiple sites without organ or systems involvement (principal)
CPT/HCPCS: 96365; J0129

== ENCOUNTER 2020-11-03 07:20 | Outpatient (CLI) | payer MEDICARE, OTHER ==
[~2020-11-03] VITALS: Ht 177.8 cm; Wt 87.0 kg
[2020-11-03 07:25] VITALS: BP 126/94
[2020-11-03] MEDS ORDERED: ABATACEPT 750 MG OVER 30 MINUTES IV ONE ×2 (07:55)
[2020-11-03] MEDS ORDERED: methylPREDNISolone 125MG 2ML VIAL IV PRN (07:55)
[2020-11-03] MEDS ORDERED: diphenhydrAMINE 50MG/ML VIAL (J1200) IV PRN (07:55)
[2020-11-03] MEDS ORDERED: diphenhydrAMINE 25MG CAP PO ONE (07:55)
[2020-11-03] MEDS ORDERED: NS 1,000 ML IV SCH (07:55)
[2020-11-03] MEDS ORDERED: EPINEPHrine INJ 1 MG/ML 1ML AMP IM PRN (07:55)
[2020-11-03] MEDS ORDERED: ALBUTEROL SULFATE 2.5 MG/0.5 ML INH NEB SOLN INH PRN (07:55)
[2020-11-03] MEDS ORDERED: ACETAMINOPHEN TAB 650MG DOSE (2X325MG) PO ONE (07:55)
[2020-11-03 08:27] VITALS: BP 126/94
[2020-11-03 08:55] VITALS: BP 129/83
== END 2020-11-03 08:55 | disposition home or self-care (01) ==
LOC: M INFU 07:20
PROVIDERS: ATTEND Internal Medicine
DX: M05.79 Rheumatoid arthritis with rheumatoid factor of multiple sites without organ or systems involvement (principal)
CPT/HCPCS: 96365; J0129

== ENCOUNTER 2020-12-01 07:51 | Outpatient (CLI) | payer MEDICARE, OTHER ==
[~2020-12-01] VITALS: Ht 177.8 cm; Wt 87.0 kg
[~2020-12-01 07:51] MED LIST changes: +ABATACEPT 750 MG OVER 30 MINUTES IV ONE; +ACETAMINOPHEN TAB 650MG DOSE (2X325MG) PO ONE; +ALBUTEROL SULFATE 2.5 MG/0.5 ML INH NEB SOLN INH PRN; +EPINEPHrine INJ 1 MG/ML 1ML AMP IM PRN; +diphenhydrAMINE 25MG CAP PO ONE; +diphenhydrAMINE 50MG/ML VIAL (J1200) IV PRN; +methylPREDNISolone 125MG 2ML VIAL IV PRN
[2020-12-01 08:31] VITALS: BP 132/67
[2020-12-01 08:48] LABS: BASO % 0.1 % (0.0-1.0); EOS # 0.1 10^3/uL (0.0-0.5); EOS % 0.8 % (0.0-3.0); HEMATOCRIT 45.7 % (42.0-52.0); HEMOGLOBIN 14.9 g/dl (13.5-17.5); LYMPH # 2.4 10^3/uL (1.5-5.0); LYMPH % 28.7 % (24.0-44.0); MEAN CORPUSCULAR HEMOGLOBIN 31.9 pg (27.0-33.0); MEAN CORPUSCULAR HGB CONC 32.6 g/dl (32.0-36.5); MEAN CORPUSCULAR VOLUME 97.9 fl (80.0-96.0); MONO # 0.8 10^3/uL (0.0-0.8); MONO % 9.2 % (2.0-8.0); NEUTROPHILS # 5.1 10^3/uL (1.5-8.5); PLATELET COUNT, AUTOMATED 295 10^3/uL (150-450); RED BLOOD COUNT 4.67 10^6/uL (4.30-6.10); WHITE BLOOD COUNT 8.4 10^3/uL (4.0-10.0)
[2020-12-01 09:00] VITALS: BP 122/70
[2020-12-01 09:22] LABS: ERYTHROCYTE SEDIMENTATION RATE 6 mm/hr (0-20)
[2020-12-01 09:23] LABS: ALBUMIN 3.9 GM/DL (3.2-5.2); ALT/SGPT 35 U/L (12-78); BILIRUBIN,TOTAL 0.4 MG/DL (0.2-1.0); BLOOD UREA NITROGEN 30 MG/DL (7-18); C REACTIVE PROTEIN QUANTITATIV 0.46 MG/DL (0.00-0.30); CALCIUM LEVEL 9.1 MG/DL (8.8-10.2); CARBON DIOXIDE LEVEL 32 MEQ/L (21-32); CHLORIDE LEVEL 101 MEQ/L (98-107); CREATININE FOR GFR 1.22 MG/DL (0.70-1.30); GLOMERULAR FILTRATION RATE > 60.0 (>42); GLUCOSE, FASTING 121 MG/DL (70-100); POTASSIUM SERUM 4.3 MEQ/L (3.5-5.1); SODIUM LEVEL 136 MEQ/L (136-145)
== END 2020-12-01 09:10 | disposition home or self-care (01) ==
LOC: M INFU 07:51
PROVIDERS: ATTEND Internal Medicine
DX: M05.79 Rheumatoid arthritis with rheumatoid factor of multiple sites without organ or systems involvement (principal)
CPT/HCPCS: 36415; 80053; 85025; 85652; 86140; 96365; J0129

== ENCOUNTER 2020-12-31 06:56 | Outpatient (CLI) | payer MEDICARE, OTHER ==
[~2020-12-31] VITALS: Ht 177.8 cm; Wt 82.7 kg
[~2020-12-31 06:56] MED LIST changes: -ABATACEPT 750 MG OVER 30 MINUTES IV ONE; -ACETAMINOPHEN TAB 650MG DOSE (2X325MG) PO ONE; -ALBUTEROL SULFATE 2.5 MG/0.5 ML INH NEB SOLN INH PRN; -EPINEPHrine INJ 1 MG/ML 1ML AMP IM PRN; +FAMO10TA52 PO; -FAMO1TAB26 PO; -diphenhydrAMINE 25MG CAP PO ONE; -diphenhydrAMINE 50MG/ML VIAL (J1200) IV PRN; -methylPREDNISolone 125MG 2ML VIAL IV PRN
[2020-12-31 07:00] VITALS: BP 120/69
[2020-12-31] MEDS ORDERED: ACETAMINOPHEN TAB 650MG DOSE (2X325MG) PO ONE (07:00)
[2020-12-31] MEDS ORDERED: diphenhydrAMINE 25MG CAP PO ONE (07:00)
[2020-12-31] MEDS ORDERED: NS 1,000 ML IV SCH (07:00)
[2020-12-31] MEDS ORDERED: ABATACEPT 750 MG OVER 30 MINUTES IV ONE ×2 (07:00)
[2020-12-31] MEDS ORDERED: diphenhydrAMINE 50MG/ML VIAL (J1200) IV PRN (07:01)
[2020-12-31] MEDS ORDERED: ALBUTEROL SULFATE 2.5 MG/0.5 ML INH NEB SOLN INH PRN (07:01)
[2020-12-31] MEDS ORDERED: methylPREDNISolone 125MG 2ML VIAL IV PRN (07:01)
[2020-12-31] MEDS ORDERED: EPINEPHrine INJ 1 MG/ML 1ML AMP IM PRN (07:01)
[2020-12-31 07:05] VITALS: BP 120/69
[2020-12-31 08:09] VITALS: BP 127/71
== END 2020-12-31 08:10 | disposition home or self-care (01) ==
LOC: M INFU 06:56
PROVIDERS: ATTEND Internal Medicine
DX: M05.79 Rheumatoid arthritis with rheumatoid factor of multiple sites without organ or systems involvement (principal)
CPT/HCPCS: 96365; J0129

== ENCOUNTER 2021-01-28 07:17 | Outpatient (CLI) | payer MEDICARE, OTHER ==
[~2021-01-28] VITALS: Ht 177.8 cm; Wt 82.9 kg
[~2021-01-28 07:17] MED LIST changes: +ALBUTEROL SULFATE 2.5 MG/0.5 ML INH NEB SOLN INH PRN; +EPINEPHrine INJ 1 MG/ML 1ML AMP IM PRN; +diphenhydrAMINE 50MG/ML VIAL (J1200) IV PRN; +methylPREDNISolone 125MG 2ML VIAL IV PRN
[2021-01-28] MEDS ORDERED: ACETAMINOPHEN TAB 650MG DOSE (2X325MG) PO ONE (07:30)
[2021-01-28] MEDS ORDERED: NS 1,000 ML IV SCH (07:30)
[2021-01-28] MEDS ORDERED: diphenhydrAMINE 25MG CAP PO ONE (07:30)
[2021-01-28] MEDS ORDERED: ABATACEPT 750 MG OVER 30 MINUTES IV ONE ×2 (07:30)
[2021-01-28 07:34] VITALS: BP 137/72
[2021-01-28 08:45] VITALS: BP 128/74
== END 2021-01-28 08:50 | disposition home or self-care (01) ==
LOC: M INFU 07:17
PROVIDERS: ATTEND Internal Medicine Rheumatology
DX: M05.79 Rheumatoid arthritis with rheumatoid factor of multiple sites without organ or systems involvement (principal)
CPT/HCPCS: 96365; J0129

== ENCOUNTER 2021-02-25 06:54 | Outpatient (CLI) | payer MEDICARE, OTHER ==
[~2021-02-25] VITALS: Ht 177.8 cm; Wt 82.9 kg
[~2021-02-25 06:54] MED LIST changes: -ALBUTEROL SULFATE 2.5 MG/0.5 ML INH NEB SOLN INH PRN; -EPINEPHrine INJ 1 MG/ML 1ML AMP IM PRN; -LISI20TA20 PO; +LISI20TA37 PO; -diphenhydrAMINE 50MG/ML VIAL (J1200) IV PRN; -methylPREDNISolone 125MG 2ML VIAL IV PRN
[2021-02-25 07:00] VITALS: BP 134/84
[2021-02-25] MEDS ORDERED: ABATACEPT 750 MG OVER 30 MINUTES IV ONE ×2 (07:00)
[2021-02-25] MEDS ORDERED: ACETAMINOPHEN TAB 650MG DOSE (2X325MG) PO ONE (07:00)
[2021-02-25] MEDS ORDERED: diphenhydrAMINE 25MG CAP PO ONE (07:00)
[2021-02-25] MEDS ORDERED: ALBUTEROL SULFATE 2.5 MG/0.5 ML INH NEB SOLN INH PRN (07:01)
[2021-02-25] MEDS ORDERED: methylPREDNISolone 125MG 2ML VIAL IV PRN (07:01)
[2021-02-25] MEDS ORDERED: EPINEPHrine INJ 1 MG/ML 1ML AMP IM PRN (07:01)
[2021-02-25] MEDS ORDERED: diphenhydrAMINE 50MG/ML VIAL (J1200) IV PRN (07:01)
[2021-02-25 08:20] VITALS: BP 129/75
== END 2021-02-25 08:20 | disposition home or self-care (01) ==
LOC: M INFU 06:54
PROVIDERS: ATTEND Internal Medicine Rheumatology
DX: M05.79 Rheumatoid arthritis with rheumatoid factor of multiple sites without organ or systems involvement (principal)
CPT/HCPCS: 96365; J0129

== ENCOUNTER 2021-03-25 06:50 | Outpatient (CLI) | payer MEDICARE, OTHER ==
[~2021-03-25] VITALS: Ht 177.8 cm; Wt 83.2 kg
[~2021-03-25 06:50] MED LIST changes: +LISI20TA20 PO; -LISI20TA37 PO
[2021-03-25 06:57] VITALS: BP 127/78
[2021-03-25] MEDS ORDERED: OREN1INJ IV (07:19)
[2021-03-25] MEDS ORDERED: diphenhydrAMINE 25MG CAP PO ONE (07:30)
[2021-03-25] MEDS ORDERED: methylPREDNISolone 125MG 2ML VIAL IV PRN (07:30)
[2021-03-25] MEDS ORDERED: diphenhydrAMINE 50MG/ML VIAL (J1200) IV PRN (07:30)
[2021-03-25] MEDS ORDERED: EPINEPHrine INJ 1 MG/ML 1ML AMP IM PRN (07:30)
[2021-03-25] MEDS ORDERED: ABATACEPT 750 MG OVER 30 MINUTES IV ONE ×2 (07:30)
[2021-03-25] MEDS ORDERED: ACETAMINOPHEN TAB 650MG DOSE (2X325MG) PO ONE (07:30)
[2021-03-25] MEDS ORDERED: ALBUTEROL SULFATE 2.5 MG/0.5 ML INH NEB SOLN INH PRN (07:30)
[2021-03-25 08:15] VITALS: BP 141/84
== END 2021-03-25 08:15 | disposition home or self-care (01) ==
LOC: M INFU 06:50
PROVIDERS: ATTEND Internal Medicine Rheumatology
DX: M05.79 Rheumatoid arthritis with rheumatoid factor of multiple sites without organ or systems involvement (principal)
CPT/HCPCS: 96365; J0129

== ENCOUNTER 2021-04-22 06:56 | Outpatient (CLI) | payer MEDICARE, OTHER ==
[~2021-04-22] VITALS: Ht 177.8 cm; Wt 82.9 kg
[2021-04-22] MEDS ORDERED: NS 1,000 ML IV SCH (07:00)
[2021-04-22] MEDS ORDERED: diphenhydrAMINE 25MG CAP PO ONE (07:00)
[2021-04-22] MEDS ORDERED: ABATACEPT 750 MG OVER 30 MINUTES IV ONE ×2 (07:00)
[2021-04-22] MEDS ORDERED: ACETAMINOPHEN TAB 650MG DOSE (2X325MG) PO ONE (07:00)
[2021-04-22] MEDS ORDERED: EPINEPHrine INJ 1 MG/ML 1ML AMP IM PRN (07:01)
[2021-04-22] MEDS ORDERED: methylPREDNISolone 125MG 2ML VIAL IV PRN (07:01)
[2021-04-22] MEDS ORDERED: ALBUTEROL SULFATE 2.5 MG/0.5 ML INH NEB SOLN INH PRN (07:01)
[2021-04-22] MEDS ORDERED: diphenhydrAMINE 50MG/ML VIAL (J1200) IV PRN (07:01)
[2021-04-22 07:02] VITALS: BP 124/82
[2021-04-22 07:11] VITALS: BP 124/82
[2021-04-22 08:13] VITALS: BP 141/72
== END 2021-04-22 08:15 | disposition home or self-care (01) ==
LOC: M INFU 06:56
PROVIDERS: ATTEND Internal Medicine Rheumatology
DX: M05.79 Rheumatoid arthritis with rheumatoid factor of multiple sites without organ or systems involvement (principal); Z79.899 Other long term (current) drug therapy
CPT/HCPCS: 36415; 80053; 85025; 85652; 86140; 96365; J0129

== ENCOUNTER → 2021-04-22 | Outpatient (CLI) | payer MEDICARE, OTHER ==
[~2021-04-22] MED LIST changes: +OREN1INJ IV
[2021-04-22 09:17] LABS: BASO % 0.4 % (0.0-1.0); EOS # 0.1 10^3/uL (0.0-0.5); EOS % 0.7 % (0.0-3.0); HEMATOCRIT 46.9 % (42.0-52.0); HEMOGLOBIN 15.7 g/dl (13.5-17.5); LYMPH # 2.7 10^3/uL (1.5-5.0); LYMPH % 29.1 % (24.0-44.0); MEAN CORPUSCULAR HEMOGLOBIN 31.9 pg (27.0-33.0); MEAN CORPUSCULAR HGB CONC 33.5 g/dl (32.0-36.5); MEAN CORPUSCULAR VOLUME 95.3 fl (80.0-96.0); MONO # 0.8 10^3/uL (0.0-0.8); MONO % 8.4 % (2.0-8.0); NEUTROPHILS # 5.8 10^3/uL (1.5-8.5); NEUTROPHILS % 61.2 % (36.0-66.0); PLATELET COUNT, AUTOMATED 296 10^3/uL (150-450); RED BLOOD COUNT 4.92 10^6/uL (4.30-6.10); WHITE BLOOD COUNT 9.4 10^3/uL (4.0-10.0)
[2021-04-22 09:43] LABS: ALBUMIN 3.9 GM/DL (3.2-5.2); ALT/SGPT 28 U/L (12-78); BILIRUBIN,TOTAL 0.4 MG/DL (0.2-1.0); BLOOD UREA NITROGEN 22 MG/DL (7-18); CALCIUM LEVEL 9.6 MG/DL (8.8-10.2); CARBON DIOXIDE LEVEL 30 MEQ/L (21-32); CHLORIDE LEVEL 104 MEQ/L (98-107); CREATININE FOR GFR 1.15 MG/DL (0.70-1.30); GLOMERULAR FILTRATION RATE > 60.0 (>42); GLUCOSE, FASTING 130 MG/DL (70-100); POTASSIUM SERUM 4.1 MEQ/L (3.5-5.1); SODIUM LEVEL 139 MEQ/L (136-145); TOTAL PROTEIN 7.4 GM/DL (6.4-8.2)
[2021-04-22 09:44] LABS: ERYTHROCYTE SEDIMENTATION RATE 6 mm/hr (0-20)
== END ==
LOC: M LAB 08:29
PROVIDERS: ATTEND Internal Medicine Rheumatology
DX: M05.79 Rheumatoid arthritis with rheumatoid factor of multiple sites without organ or systems involvement (principal); Z79.899 Other long term (current) drug therapy

== ENCOUNTER → 2021-05-01 | Outpatient (CLI) | payer MEDICARE, OTHER ==
--- NOTE | 2021-05-01 09:52 | REP ---
INDICATION: RHEU ARTHRITIS W RHEU FACTOR MULT SITE W/O ORG/SYS INVOLV. COMPARISON: 05/10/2018 TECHNIQUE: Four views each hand. FINDINGS: RIGHT HAND: There is slight narrowing of the D IP joint of the 5th digit in less at the other D IP joint. PIP joint of the 5th digit also shows slight narrowing with slight narrowing at the 2nd and 3rd D IP joints. Ossific densities in the collateral ligament along the ulnar aspect at the 3rd digit PIP joint again seen. There are marginal osteophytes at the ulnar margin of the 2nd and 4th PIP joints and at the 2nd, 3rd and 5th D IP joints. Metallic foreign body in the soft tissues dorsal to the proximal phalanx of the 4th digit as before. No acute fracture. Minimal degenerative change at the IP joint of thumb. MCP joints intact. There are degenerative changes at the 1st CMC joint. There is mild ulna minus variant evident. Lucency at the distal tip of the ulnar styloid is again seen and may be a small bone cyst or erosion no other definite erosive changes are seen anywhere in the hand. Bones are not demineralized. LEFT HAND: Mild IP joint space narrowing PIP joints 2 through 5 and the DIP joints without erosions or destructive lesion. I do not see significant spurring. There is no fracture. The bones do not show demineralization. 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 Carpal bones are otherwise unremarkable distal radius and ulna intact. No abnormal soft tissue calcifications. IMPRESSION: 1. The right hand shows multi joint IP narrowing and multiple digits with marginal osteophytes at multiple joints as well and no erosions there are ossific densities along the ulnar aspect of the collateral ligaments at the 3rd digit PIP joint unchanged. First CMC joint degenerative change seen. No demineralization. No new or progressive change. 2. The left hand also shows multiple IP joints with narrowing but no significant spurring or erosions. No fracture or destructive lesion. The bones show no demineralization. There are degenerative changes at the 1st CMC joint. No other significant finding, stable. <Electronically signed by Ludin Barber > 05/01/21 0994
--- NOTE | 2021-05-01 10:00 | REP ---
INDICATION: RHEU ARTHRITIS W RHEU FACTOR MULT SITE W/O ORG/SYS INVOLV. COMPARISON: None. TECHNIQUE: Four views. FINDINGS: LEFT FOOT: Some mild IP joint narrowing of the PIP joints 2 through 4. The other joints relatively intact in the toes. The MCP joints intact no erosions or spurring. Metatarsals without acute finding. There is no demineralization. Tarsal bones and their joint spaces are unremarkable the talonavicular and calcaneocuboid joints are normal. Subtalar joints intact. Talus and calcaneus were unremarkable. Distal tibia and fibula show small marginal osteophyte and calcific density adjacent to the distal tip of the medial malleolus. Some mild soft tissue swelling about the 1st MTP joint. RIGHT FOOT: Some IP joint narrowing the 2nd through 5th digits noted. The other IP joints and MTP joints show no narrowing or definite erosions. The D IP joint of the 5th digit in both toes is fused as anatomic variation. Metatarsals show no focal lesion there is no evidence of osteoporosis. Tarsal bones and articulations are unremarkable. Talonavicular and calcaneocuboid joints are normal. Talus and calcaneus are unremarkable. The subtalar joints are normal. There is some soft tissue swelling about the 1st MTP joint without abnormal soft tissue calcification or erosions. IMPRESSION: 1. Left foot with minor joint space narrowing at multiple IP joints and some minor degenerative changes at the medial aspect of the ankle visible, no other significant or acute finding. No erosions, avulsion, bony destructive lesion or osteoporosis. Mild soft tissue swelling about the 1st MTP joint. 2. Right foot with minor joint space narrowing at multiple IP joints. No erosions, avulsion, bony destructive lesion or osteoporosis. Mild soft tissue swelling about the 1st MTP joint without abnormal soft tissue calcification or erosions. <Electronically signed by Ludin Barber > 05/01/21 0956
== END ==
LOC: M RAD 08:24
PROVIDERS: ATTEND Internal Medicine Rheumatology
DX: M05.79 Rheumatoid arthritis with rheumatoid factor of multiple sites without organ or systems involvement (principal)

== ENCOUNTER 2021-05-20 06:41 | Outpatient (CLI) | payer MEDICARE, OTHER ==
[~2021-05-20] VITALS: Ht 177.8 cm; Wt 98.2 kg
[~2021-05-20 06:41] MED LIST changes: -LISI20TA20 PO; +LISI20TA37 PO
[2021-05-20 06:50] VITALS: BP 131/67
[2021-05-20] MEDS ORDERED: diphenhydrAMINE 25MG CAP PO ONE (07:00)
[2021-05-20] MEDS ORDERED: ALBUTEROL SULFATE 2.5 MG/0.5 ML INH NEB SOLN INH PRN (07:00)
[2021-05-20] MEDS ORDERED: ACETAMINOPHEN TAB 650MG DOSE (2X325MG) PO ONE (07:00)
[2021-05-20] MEDS ORDERED: diphenhydrAMINE 50MG/ML VIAL (J1200) IV PRN (07:00)
[2021-05-20] MEDS ORDERED: ABATACEPT 750 MG OVER 30 MINUTES IV ONE ×2 (07:00)
[2021-05-20] MEDS ORDERED: methylPREDNISolone 125MG 2ML VIAL IV PRN (07:00)
[2021-05-20] MEDS ORDERED: EPINEPHrine INJ 1 MG/ML 1ML AMP IM PRN (07:00)
[2021-05-20] MEDS ORDERED: NS 1,000 ML IV SCH (07:00)
[2021-05-20 07:18] LABS: BASO % 0.2 % (0.0-1.0); EOS # 0.1 10^3/uL (0.0-0.5); EOS % 1.2 % (0.0-3.0); HEMATOCRIT 43.2 % (42.0-52.0); HEMOGLOBIN 14.5 g/dl (13.5-17.5); LYMPH # 2.5 10^3/uL (1.5-5.0); MEAN CORPUSCULAR HEMOGLOBIN 31.8 pg (27.0-33.0); MEAN CORPUSCULAR HGB CONC 33.6 g/dl (32.0-36.5); MEAN CORPUSCULAR VOLUME 94.7 fl (80.0-96.0); MONO # 0.9 10^3/uL (0.0-0.8); MONO % 10.6 % (2.0-8.0); NEUTROPHILS # 4.7 10^3/uL (1.5-8.5); NEUTROPHILS % 57.8 % (36.0-66.0); PLATELET COUNT, AUTOMATED 274 10^3/uL (150-450); RED BLOOD COUNT 4.56 10^6/uL (4.30-6.10); WHITE BLOOD COUNT 8.2 10^3/uL (4.0-10.0)
[2021-05-20 07:21] VITALS: BP 131/67
[2021-05-20 07:38] LABS: ALBUMIN 3.4 GM/DL (3.2-5.2); ALT/SGPT 27 U/L (12-78); BILIRUBIN,TOTAL 0.2 MG/DL (0.2-1.0); BLOOD UREA NITROGEN 20 MG/DL (7-18); CARBON DIOXIDE LEVEL 30 MEQ/L (21-32); CHLORIDE LEVEL 105 MEQ/L (98-107); CREATININE FOR GFR 1.16 MG/DL (0.70-1.30); GLOMERULAR FILTRATION RATE > 60.0 (>42); GLUCOSE, FASTING 136 MG/DL (70-100); POTASSIUM SERUM 4.1 MEQ/L (3.5-5.1); SODIUM LEVEL 139 MEQ/L (136-145); TOTAL PROTEIN 6.7 GM/DL (6.4-8.2)
[2021-05-20 08:11] LABS: ERYTHROCYTE SEDIMENTATION RATE 8 mm/hr (0-20)
== END 2021-05-20 08:15 | disposition home or self-care (01) ==
LOC: M INFU 06:41
PROVIDERS: ATTEND Internal Medicine Rheumatology
DX: M05.79 Rheumatoid arthritis with rheumatoid factor of multiple sites without organ or systems involvement (principal)
CPT/HCPCS: 36592; 80053; 85025; 85652; 86140; 96365; J0129

== ENCOUNTER 2021-06-17 06:53 | Outpatient (CLI) | payer MEDICARE, OTHER ==
[~2021-06-17] VITALS: Ht 177.8 cm; Wt 82.9 kg
[~2021-06-17 06:53] MED LIST changes: +LISI20TA20 PO; -LISI20TA37 PO
[2021-06-17 07:00] VITALS: BP 133/78
[2021-06-17] MEDS ORDERED: diphenhydrAMINE 25MG CAP PO ONE (07:00)
[2021-06-17] MEDS ORDERED: ABATACEPT 750 MG OVER 30 MINUTES IV ONE ×2 (07:00)
[2021-06-17] MEDS ORDERED: ACETAMINOPHEN TAB 650MG DOSE (2X325MG) PO ONE (07:00)
[2021-06-17] MEDS ORDERED: ALBUTEROL SULFATE 2.5 MG/0.5 ML INH NEB SOLN INH PRN (07:01)
[2021-06-17] MEDS ORDERED: EPINEPHrine INJ 1 MG/ML 1ML AMP IM PRN (07:01)
[2021-06-17] MEDS ORDERED: methylPREDNISolone 125MG 2ML VIAL IV PRN (07:01)
[2021-06-17] MEDS ORDERED: diphenhydrAMINE 50MG/ML VIAL (J1200) IV PRN (07:01)
[2021-06-17 08:10] VITALS: BP 125/79
== END 2021-06-17 08:10 | disposition home or self-care (01) ==
LOC: M INFU 06:53
PROVIDERS: ATTEND Internal Medicine Rheumatology
DX: M05.79 Rheumatoid arthritis with rheumatoid factor of multiple sites without organ or systems involvement (principal)
CPT/HCPCS: 96365; J0129

== ENCOUNTER 2021-08-12 06:55 | Outpatient (CLI) | payer MEDICARE, OTHER ==
[~2021-08-12] VITALS: Ht 177.8 cm; Wt 82.7 kg
[~2021-08-12 06:55] MED LIST changes: -LISI20TA20 PO; +LISI20TA37 PO
[2021-08-12] MEDS ORDERED: NS 1,000 ML IV SCH (07:00)
[2021-08-12] MEDS ORDERED: diphenhydrAMINE 25MG CAP PO ONE (07:00)
[2021-08-12] MEDS ORDERED: ABATACEPT 750 MG OVER 30 MINUTES IV ONE ×2 (07:00)
[2021-08-12] MEDS ORDERED: ACETAMINOPHEN TAB 650MG DOSE (2X325MG) PO ONE (07:00)
[2021-08-12] MEDS ORDERED: EPINEPHrine INJ 1 MG/ML 1ML AMP IM PRN (07:01)
[2021-08-12] MEDS ORDERED: ALBUTEROL SULFATE 2.5 MG/0.5 ML INH NEB SOLN INH PRN (07:01)
[2021-08-12] MEDS ORDERED: methylPREDNISolone 125MG 2ML VIAL IV PRN (07:01)
[2021-08-12] MEDS ORDERED: diphenhydrAMINE 50MG/ML VIAL (J1200) IV PRN (07:01)
[2021-08-12 07:23] VITALS: BP 123/65
[2021-08-12 07:25] LABS: BASO % 0.2 % (0.0-1.0); EOS # 0.1 10^3/uL (0.0-0.5); EOS % 1.3 % (0.0-3.0); HEMATOCRIT 44.9 % (42.0-52.0); HEMOGLOBIN 15.5 g/dl (13.5-17.5); LYMPH # 2.2 10^3/uL (1.5-5.0); LYMPH % 26.6 % (24.0-44.0); MEAN CORPUSCULAR HEMOGLOBIN 32.3 pg (27.0-33.0); MEAN CORPUSCULAR HGB CONC 34.5 g/dl (32.0-36.5); MEAN CORPUSCULAR VOLUME 93.5 fl (80.0-96.0); MONO # 0.8 10^3/uL (0.0-0.8); MONO % 9.1 % (2.0-8.0); NEUTROPHILS # 5.1 10^3/uL (1.5-8.5); NEUTROPHILS % 62.6 % (36.0-66.0); PLATELET COUNT, AUTOMATED 260 10^3/uL (150-450); WHITE BLOOD COUNT 8.2 10^3/uL (4.0-10.0)
[2021-08-12 07:58] LABS: ALBUMIN 3.8 GM/DL (3.2-5.2); BILIRUBIN,TOTAL 0.4 MG/DL (0.2-1.0); C REACTIVE PROTEIN QUANTITATIV 0.45 MG/DL (0.00-0.30); CALCIUM LEVEL 9.4 MG/DL (8.8-10.2); CREATININE FOR GFR 1.33 MG/DL (0.70-1.30); GLOMERULAR FILTRATION RATE 56.3 (>42); POTASSIUM SERUM 4.2 MEQ/L (3.5-5.1); TOTAL PROTEIN 7.3 GM/DL (6.4-8.2)
[2021-08-12 08:15] LABS: ERYTHROCYTE SEDIMENTATION RATE 9 mm/hr (0-20)
[2021-08-12 08:58] VITALS: BP 143/70
== END 2021-08-12 09:00 | disposition home or self-care (01) ==
LOC: M INFU 06:55
PROVIDERS: ATTEND Internal Medicine Rheumatology
DX: M05.79 Rheumatoid arthritis with rheumatoid factor of multiple sites without organ or systems involvement (principal)
CPT/HCPCS: 36592; 80053; 85025; 85652; 86140; 96365; J0129

== ENCOUNTER 2021-09-09 06:43 | Outpatient (CLI) | payer MEDICARE, OTHER ==
[~2021-09-09] VITALS: Ht 177.8 cm; Wt 82.7 kg
[2021-09-09 06:45] VITALS: BP 113/65
[2021-09-09] MEDS ORDERED: diphenhydrAMINE 25MG CAP PO ONE (07:00)
[2021-09-09] MEDS ORDERED: ACETAMINOPHEN TAB 650MG DOSE (2X325MG) PO ONE (07:00)
[2021-09-09] MEDS ORDERED: ABATACEPT 750 MG OVER 30 MINUTES IV ONE ×2 (07:00)
[2021-09-09] MEDS ORDERED: methylPREDNISolone 125MG 2ML VIAL IV PRN (07:01)
[2021-09-09] MEDS ORDERED: diphenhydrAMINE 50MG/ML VIAL (J1200) IV PRN (07:01)
[2021-09-09] MEDS ORDERED: ALBUTEROL SULFATE 2.5 MG/0.5 ML INH NEB SOLN INH PRN (07:01)
[2021-09-09] MEDS ORDERED: EPINEPHrine INJ 1 MG/ML 1ML AMP IM PRN (07:01)
[2021-09-09 08:00] VITALS: BP 161/86
== END 2021-09-09 08:05 | disposition home or self-care (01) ==
LOC: M INFU 06:43
PROVIDERS: ATTEND Internal Medicine Rheumatology
DX: M05.79 Rheumatoid arthritis with rheumatoid factor of multiple sites without organ or systems involvement (principal)
CPT/HCPCS: 96365; J0129

== ENCOUNTER 2021-11-04 06:41 | Outpatient (CLI) | payer MEDICARE, OTHER ==
[~2021-11-04] VITALS: Ht 177.8 cm; Wt 85.1 kg
[2021-11-04] MEDS ORDERED: methylPREDNISolone 125MG 2ML VIAL IV PRN (06:50)
[2021-11-04] MEDS ORDERED: EPINEPHrine INJ 1 MG/ML 1ML AMP IM PRN (06:50)
[2021-11-04] MEDS ORDERED: diphenhydrAMINE 50MG/ML VIAL (J1200) IV PRN (06:50)
[2021-11-04] MEDS ORDERED: ALBUTEROL SULFATE 2.5 MG/0.5 ML INH NEB SOLN INH PRN (06:50)
[2021-11-04] MEDS ORDERED: ABATACEPT 750 MG OVER 30 MINUTES IV ONE ×2 (07:00)
[2021-11-04] MEDS ORDERED: NS 1,000 ML IV SCH (07:00)
[2021-11-04] MEDS ORDERED: diphenhydrAMINE 25MG CAP PO ONE (07:00)
[2021-11-04] MEDS ORDERED: ACETAMINOPHEN TAB 650MG DOSE (2X325MG) PO ONE (07:00)
[2021-11-04 07:02] VITALS: BP 125/73
[2021-11-04 08:15] VITALS: BP 122/68
== END 2021-11-04 08:15 ==
LOC: M INFU 06:41
PROVIDERS: ATTEND Internal Medicine Rheumatology
DX: M05.79 Rheumatoid arthritis with rheumatoid factor of multiple sites without organ or systems involvement (principal)
CPT/HCPCS: 96365; J0129

== ENCOUNTER 2021-12-02 07:21 | Outpatient (CLI) | payer MEDICARE, OTHER ==
[~2021-12-02] VITALS: Ht 177.8 cm; Wt 85.9 kg
[~2021-12-02 07:21] MED LIST changes: +ALBUTEROL SULFATE 2.5 MG/0.5 ML INH NEB SOLN INH PRN; +EPINEPHrine INJ 1 MG/ML 1ML AMP IM PRN; +diphenhydrAMINE 50MG/ML VIAL (J1200) IV PRN; +methylPREDNISolone 125MG 2ML VIAL IV PRN
[2021-12-02] MEDS ORDERED: diphenhydrAMINE 25MG CAP PO ONE (07:30)
[2021-12-02] MEDS ORDERED: ABATACEPT 750 MG OVER 30 MINUTES IV ONE ×2 (07:30)
[2021-12-02] MEDS ORDERED: ACETAMINOPHEN TAB 650MG DOSE (2X325MG) PO ONE (07:30)
[2021-12-02 07:40] VITALS: BP 117/70
[2021-12-02 08:50] VITALS: BP 137/82
== END 2021-12-02 08:50 | disposition home or self-care (01) ==
LOC: M INFU 07:21
PROVIDERS: ATTEND Internal Medicine Rheumatology
DX: M05.79 Rheumatoid arthritis with rheumatoid factor of multiple sites without organ or systems involvement (principal)
CPT/HCPCS: 96365; J0129

== ENCOUNTER → 2021-12-24 | Outpatient (CLI) | payer MEDICARE, OTHER ==
[~2021-12-24] MED LIST changes: -ALBUTEROL SULFATE 2.5 MG/0.5 ML INH NEB SOLN INH PRN; -EPINEPHrine INJ 1 MG/ML 1ML AMP IM PRN; -diphenhydrAMINE 50MG/ML VIAL (J1200) IV PRN; -methylPREDNISolone 125MG 2ML VIAL IV PRN
[2021-12-24 13:36] LABS: BASO % 0.4 % (0.0-1.0); EOS # 0.1 10^3/uL (0.0-0.5); HEMATOCRIT 44.7 % (42.0-52.0); HEMOGLOBIN 15.1 g/dl (13.5-17.5); LYMPH # 2.3 10^3/uL (1.5-5.0); LYMPH % 29.8 % (24.0-44.0); MEAN CORPUSCULAR HEMOGLOBIN 32.7 pg (27.0-33.0); MEAN CORPUSCULAR HGB CONC 33.8 g/dl (32.0-36.5); MEAN CORPUSCULAR VOLUME 96.8 fl (80.0-96.0); MONO # 0.6 10^3/uL (0.0-0.8); MONO % 8.2 % (2.0-8.0); NEUTROPHILS # 4.6 10^3/uL (1.5-8.5); NEUTROPHILS % 60.3 % (36.0-66.0); PLATELET COUNT, AUTOMATED 282 10^3/uL (150-450); RED BLOOD COUNT 4.62 10^6/uL (4.30-6.10); WHITE BLOOD COUNT 7.7 10^3/uL (4.0-10.0)
[2021-12-24 14:02] LABS: ERYTHROCYTE SEDIMENTATION RATE 10 mm/hr (0-20)
[2021-12-24 14:14] LABS: ALBUMIN 4.1 GM/DL (3.2-5.2); ALT/SGPT 29 U/L (12-78); BILIRUBIN,TOTAL 0.6 MG/DL (0.2-1.0); BLOOD UREA NITROGEN 19 MG/DL (7-18); C REACTIVE PROTEIN QUANTITATIV 0.87 MG/DL (0.00-0.30); CALCIUM LEVEL 9.8 MG/DL (8.8-10.2); CARBON DIOXIDE LEVEL 33 MEQ/L (21-32); CHLORIDE LEVEL 102 MEQ/L (98-107); CREATININE FOR GFR 1.21 MG/DL (0.70-1.30); GLOMERULAR FILTRATION RATE > 60.0 (>42); GLUCOSE, FASTING 128 MG/DL (70-100); POTASSIUM SERUM 4.5 MEQ/L (3.5-5.1); SODIUM LEVEL 137 MEQ/L (136-145)
== END ==
LOC: M LAB 12:38
PROVIDERS: ATTEND Internal Medicine Rheumatology
DX: Z79.899 Other long term (current) drug therapy (principal)

== ENCOUNTER 2021-12-30 08:39 | Outpatient (CLI) | payer MEDICARE, OTHER ==
[~2021-12-30] VITALS: Ht 177.8 cm; Wt 82.7 kg
[~2021-12-30 08:39] MED LIST changes: +ABATACEPT 750 MG OVER 30 MINUTES IV ONE; +ACETAMINOPHEN TAB 650MG DOSE (2X325MG) PO ONE; +ALBUTEROL SULFATE 2.5 MG/0.5 ML INH NEB SOLN INH PRN; +EPINEPHrine INJ 1 MG/ML 1ML AMP IM PRN; +diphenhydrAMINE 25MG CAP PO ONE; +diphenhydrAMINE 50MG/ML VIAL (J1200) IV PRN; +methylPREDNISolone 125MG 2ML VIAL IV PRN
[2021-12-30 08:45] VITALS: BP 135/76
[2021-12-30 10:10] VITALS: BP 134/94
== END 2021-12-30 10:10 ==
LOC: M INFU 08:39
PROVIDERS: ATTEND Internal Medicine Rheumatology
DX: M05.79 Rheumatoid arthritis with rheumatoid factor of multiple sites without organ or systems involvement (principal)
CPT/HCPCS: 96365; J0129

== ENCOUNTER 2022-01-27 07:15 | Outpatient (CLI) | payer MEDICARE, OTHER ==
[~2022-01-27] VITALS: Ht 177.8 cm; Wt 82.7 kg
[2022-01-27 07:15] VITALS: BP 127/72
[~2022-01-27 07:15] MED LIST changes: -ABATACEPT 750 MG OVER 30 MINUTES IV ONE; -ACETAMINOPHEN TAB 650MG DOSE (2X325MG) PO ONE; -diphenhydrAMINE 25MG CAP PO ONE
[2022-01-27] MEDS ORDERED: ACETAMINOPHEN TAB 650MG DOSE (2X325MG) PO ONE (07:30)
[2022-01-27] MEDS ORDERED: ABATACEPT 750 MG OVER 30 MINUTES IV ONE ×2 (07:30)
[2022-01-27] MEDS ORDERED: NS 1,000 ML IV SCH (07:30)
[2022-01-27] MEDS ORDERED: diphenhydrAMINE 25MG CAP PO ONE (07:30)
[2022-01-27 08:40] VITALS: BP_SYST 121; BP_SYST 127; BP_DIAS 56; BP_DIAS 72
== END 2022-01-27 08:40 ==
LOC: M INFU 07:15
PROVIDERS: ATTEND Internal Medicine Rheumatology
DX: M05.79 Rheumatoid arthritis with rheumatoid factor of multiple sites without organ or systems involvement (principal)
CPT/HCPCS: 96365; J0129

== ENCOUNTER 2022-02-24 07:15 | Outpatient (CLI) | payer MEDICARE, OTHER ==
[~2022-02-24] VITALS: Ht 177.8 cm; Wt 85.1 kg
[2022-02-24 07:15] VITALS: BP 143/80
[2022-02-24] MEDS ORDERED: ACETAMINOPHEN TAB 650MG DOSE (2X325MG) PO ONE (07:30)
[2022-02-24] MEDS ORDERED: diphenhydrAMINE 25MG CAP PO ONE (07:30)
[2022-02-24] MEDS ORDERED: ABATACEPT 750 MG OVER 30 MINUTES IV ONE ×2 (07:30)
[2022-02-24 08:45] VITALS: BP 125/68
== END 2022-02-24 08:50 | disposition home or self-care (01) ==
LOC: M INFU 07:15
PROVIDERS: ATTEND Internal Medicine Rheumatology
DX: M05.79 Rheumatoid arthritis with rheumatoid factor of multiple sites without organ or systems involvement (principal)
CPT/HCPCS: 96365; J0129

== ENCOUNTER 2022-03-24 07:15 | Outpatient (CLI) | payer MEDICARE, OTHER ==
[~2022-03-24] VITALS: Ht 177.8 cm; Wt 85.1 kg
[2022-03-24 07:15] VITALS: BP 132/69
[2022-03-24] MEDS ORDERED: diphenhydrAMINE 25MG CAP PO ONE (07:30)
[2022-03-24] MEDS ORDERED: ACETAMINOPHEN TAB 650MG DOSE (2X325MG) PO ONE (07:30)
[2022-03-24] MEDS ORDERED: ABATACEPT 750 MG OVER 30 MINUTES IV ONE ×2 (07:30)
[2022-03-24 08:40] VITALS: BP 140/81
== END 2022-03-24 08:45 | disposition home or self-care (01) ==
LOC: M INFU 07:15
PROVIDERS: ATTEND Internal Medicine Rheumatology
DX: M05.79 Rheumatoid arthritis with rheumatoid factor of multiple sites without organ or systems involvement (principal)
CPT/HCPCS: 96365; J0129

== ENCOUNTER 2022-04-21 07:20 | Outpatient (CLI) | payer MEDICARE, OTHER ==
[~2022-04-21] VITALS: Ht 177.8 cm; Wt 82.5 kg
[2022-04-21 07:20] VITALS: BP 121/64
[2022-04-21] MEDS ORDERED: ACETAMINOPHEN TAB 650MG DOSE (2X325MG) PO ONE (07:30)
[2022-04-21] MEDS ORDERED: NS 1,000 ML IV SCH (07:30)
[2022-04-21] MEDS ORDERED: ABATACEPT 750 MG OVER 30 MINUTES IV ONE ×2 (07:30)
[2022-04-21] MEDS ORDERED: diphenhydrAMINE 25MG CAP PO ONE (07:30)
[2022-04-21 08:45] VITALS: BP 123/79
== END 2022-04-21 08:45 | disposition home or self-care (01) ==
LOC: M INFU 07:20
PROVIDERS: ATTEND Internal Medicine Rheumatology
DX: M05.79 Rheumatoid arthritis with rheumatoid factor of multiple sites without organ or systems involvement (principal)
CPT/HCPCS: 96365; J0129

== ENCOUNTER → 2022-05-04 | Outpatient (CLI) | payer MEDICARE, OTHER ==
[~2022-05-04] MED LIST changes: -ALBUTEROL SULFATE 2.5 MG/0.5 ML INH NEB SOLN INH PRN; -EPINEPHrine INJ 1 MG/ML 1ML AMP IM PRN; -diphenhydrAMINE 50MG/ML VIAL (J1200) IV PRN; -methylPREDNISolone 125MG 2ML VIAL IV PRN
[2022-05-04 08:37] LABS: BASO % 0.3 % (0.0-1.0); EOS # 0.1 10^3/uL (0.0-0.5); EOS % 1.5 % (0.0-3.0); HEMATOCRIT 46.3 % (42.0-52.0); HEMOGLOBIN 15.4 g/dl (13.5-17.5); LYMPH # 3.2 10^3/uL (1.5-5.0); LYMPH % 35.9 % (24.0-44.0); MEAN CORPUSCULAR HEMOGLOBIN 32.1 pg (27.0-33.0); MEAN CORPUSCULAR HGB CONC 33.3 g/dl (32.0-36.5); MEAN CORPUSCULAR VOLUME 96.5 fl (80.0-96.0); MONO # 0.7 10^3/uL (0.0-0.8); MONO % 7.6 % (2.0-8.0); NEUTROPHILS # 4.8 10^3/uL (1.5-8.5); NEUTROPHILS % 54.5 % (36.0-66.0); PLATELET COUNT, AUTOMATED 320 10^3/uL (150-450); WHITE BLOOD COUNT 8.8 10^3/uL (4.0-10.0)
[2022-05-04 09:47] LABS: ALBUMIN 3.7 GM/DL (3.2-5.2); ALT/SGPT 28 U/L (12-78); BILIRUBIN,TOTAL 0.4 MG/DL (0.2-1.0); BLOOD UREA NITROGEN 15 MG/DL (7-18); C REACTIVE PROTEIN QUANTITATIV 0.44 MG/DL (0.00-0.30); CARBON DIOXIDE LEVEL 33 MEQ/L (21-32); CHLORIDE LEVEL 101 MEQ/L (98-107); CREATININE FOR GFR 1.25 MG/DL (0.70-1.30); GLOMERULAR FILTRATION RATE > 60.0 (>42); GLUCOSE, FASTING 117 MG/DL (70-100); POTASSIUM SERUM 4.4 MEQ/L (3.5-5.1); SODIUM LEVEL 139 MEQ/L (136-145); TOTAL PROTEIN 7.3 GM/DL (6.4-8.2)
[2022-05-04 09:50] LABS: ERYTHROCYTE SEDIMENTATION RATE 18 mm/hr (0-20)
== END ==
LOC: M LAB 07:15
PROVIDERS: ATTEND Internal Medicine Rheumatology
DX: M05.79 Rheumatoid arthritis with rheumatoid factor of multiple sites without organ or systems involvement (principal)

== ENCOUNTER 2022-05-19 07:20 | Outpatient (CLI) | payer MEDICARE, OTHER ==
[~2022-05-19] VITALS: Ht 177.8 cm; Wt 82.5 kg
[2022-05-19 07:20] VITALS: BP 125/82
[~2022-05-19 07:20] MED LIST changes: +ALBUTEROL SULFATE 2.5 MG/0.5 ML INH NEB SOLN INH PRN; +EPINEPHrine INJ 1 MG/ML 1ML AMP IM PRN; +diphenhydrAMINE 50MG/ML VIAL IV PRN; +methylPREDNISolone 125MG 2ML VIAL IV PRN
[2022-05-19] MEDS ORDERED: ABATACEPT 750 MG OVER 30 MINUTES IV ONE ×2 (07:30)
[2022-05-19] MEDS ORDERED: diphenhydrAMINE 25MG CAP PO ONE (07:30)
[2022-05-19] MEDS ORDERED: ACETAMINOPHEN TAB 650MG DOSE (2X325MG) PO ONE (07:30)
[2022-05-19 08:30] VITALS: BP 136/76
== END 2022-05-19 08:30 | disposition home or self-care (01) ==
LOC: M INFU 07:20
PROVIDERS: ATTEND Internal Medicine Rheumatology
DX: M05.79 Rheumatoid arthritis with rheumatoid factor of multiple sites without organ or systems involvement (principal)
CPT/HCPCS: 96365; J0129

== ENCOUNTER → 2022-06-16 | Outpatient (CLI) | payer MEDICARE, OTHER ==
[~2022-06-16] VITALS: Ht 177.8 cm; Wt 82.5 kg
[~2022-06-16] MED LIST changes: +ABATACEPT 750 MG OVER 30 MINUTES IV ONE; +ACETAMINOPHEN TAB 650MG DOSE (2X325MG) PO ONE; -ALBUTEROL SULFATE 2.5 MG/0.5 ML INH NEB SOLN INH PRN; +ALBUTEROL SULFATE 2.5MG/0.5ML INH NEB SOLN INH PRN; +diphenhydrAMINE 25MG CAP PO ONE
[2022-06-16 08:07] VITALS: BP 140/79
[2022-06-16 09:13] VITALS: BP 148/83
== END ==
LOC: M INFU 07:30
PROVIDERS: ATTEND Internal Medicine Rheumatology
DX: M05.79 Rheumatoid arthritis with rheumatoid factor of multiple sites without organ or systems involvement (principal)
CPT/HCPCS: 96365; J0129

== ENCOUNTER 2022-07-14 07:20 | Outpatient (CLI) | payer MEDICARE, OTHER ==
[~2022-07-14] VITALS: Ht 177.8 cm; Wt 82.5 kg
[2022-07-14 07:20] VITALS: BP 129/65
[~2022-07-14 07:20] MED LIST changes: -ABATACEPT 750 MG OVER 30 MINUTES IV ONE; -ACETAMINOPHEN TAB 650MG DOSE (2X325MG) PO ONE; -diphenhydrAMINE 25MG CAP PO ONE
[2022-07-14] MEDS ORDERED: NS 1,000 ML IV SCH (07:30)
[2022-07-14] MEDS ORDERED: ACETAMINOPHEN TAB 650MG DOSE (2X325MG) PO ONE (07:30)
[2022-07-14] MEDS ORDERED: ABATACEPT 750 MG OVER 30 MINUTES IV ONE ×2 (07:30)
[2022-07-14] MEDS ORDERED: diphenhydrAMINE 25MG CAP PO ONE (07:30)
[2022-07-14 08:45] VITALS: BP 115/67
== END 2022-07-14 08:50 | disposition home or self-care (01) ==
LOC: M INFU 07:20
PROVIDERS: ATTEND Internal Medicine Rheumatology
DX: M05.79 Rheumatoid arthritis with rheumatoid factor of multiple sites without organ or systems involvement (principal)
CPT/HCPCS: 96365; J0129

== ENCOUNTER → 2022-08-06 | Outpatient (CLI) | payer MEDICARE, OTHER ==
[~2022-08-06] MED LIST changes: -ALBUTEROL SULFATE 2.5MG/0.5ML INH NEB SOLN INH PRN; -EPINEPHrine INJ 1 MG/ML 1ML AMP IM PRN; -diphenhydrAMINE 50MG/ML VIAL IV PRN; -methylPREDNISolone 125MG 2ML VIAL IV PRN
[2022-08-06 11:57] LABS: BASO % 0.1 % (0.0-1.0); EOS # 0.1 10^3/uL (0.0-0.5); HEMATOCRIT 45.3 % (42.0-52.0); HEMOGLOBIN 15.2 g/dl (13.5-17.5); LYMPH # 2.4 10^3/uL (1.5-5.0); LYMPH % 33.2 % (24.0-44.0); MEAN CORPUSCULAR HEMOGLOBIN 31.5 pg (27.0-33.0); MEAN CORPUSCULAR HGB CONC 33.6 g/dl (32.0-36.5); MEAN CORPUSCULAR VOLUME 93.8 fl (80.0-96.0); MONO # 0.6 10^3/uL (0.0-0.8); MONO % 8.4 % (2.0-8.0); NEUTROPHILS # 4.2 10^3/uL (1.5-8.5); PLATELET COUNT, AUTOMATED 283 10^3/uL (150-450); RED BLOOD COUNT 4.83 10^6/uL (4.30-6.10); WHITE BLOOD COUNT 7.3 10^3/uL (4.0-10.0)
[2022-08-06 12:21] LABS: ERYTHROCYTE SEDIMENTATION RATE 18 mm/hr (0-20)
[2022-08-06 12:28] LABS: BLOOD UREA NITROGEN 15 MG/DL (9-23); CREATININE FOR GFR 1.15 MG/DL (0.70-1.30); GLOMERULAR FILTRATION RATE > 60.0 (>42); GLUCOSE, FASTING 200 MG/DL (74-106); SODIUM LEVEL 138 MMOL/L (136-145)
[2022-08-06 12:29] LABS: ALKALINE PHOSPHATASE 65 U/L (46-116); ALT/SGPT 26 U/L (7.0-40); AST/SGOT < 8 U/L (<34); BILIRUBIN,TOTAL 0.4 MG/DL (0.3-1.2); CALCIUM LEVEL 9.5 MG/DL (8.3-10.6); CARBON DIOXIDE LEVEL 31 MMOL/L (20-31); CHLORIDE LEVEL 99 MMOL/L (98-107); POTASSIUM SERUM 4.2 MMOL/L (3.5-5.1); TOTAL PROTEIN 7.1 G/DL (5.7-8.2)
== END ==
LOC: M LAB 10:54
PROVIDERS: ATTEND Internal Medicine Rheumatology
DX: M05.79 Rheumatoid arthritis with rheumatoid factor of multiple sites without organ or systems involvement (principal); I73.00 Raynaud's syndrome without gangrene; Z79.899 Other long term (current) drug therapy; M15.9 Polyosteoarthritis, unspecified; R21 Rash and other nonspecific skin eruption

== ENCOUNTER → 2022-08-06 | Outpatient (CLI) | payer MEDICARE, OTHER ==
[2022-08-06 12:43] LABS: HEMOGLOBIN A1c 6.9 % (4.0-6.0)
== END ==
LOC: M LAB 10:52
PROVIDERS: ATTEND Physician Assistant
DX: E11.9 Type 2 diabetes mellitus without complications (principal)

== ENCOUNTER 2022-08-11 07:30 | Outpatient (CLI) | payer MEDICARE, OTHER ==
[~2022-08-11] VITALS: Ht 177.8 cm; Wt 82.5 kg
[~2022-08-11 07:30] MED LIST changes: +ABATACEPT 750 MG OVER 30 MINUTES IV ONE; +ACETAMINOPHEN TAB 650MG DOSE (2X325MG) PO ONE; +ALBUTEROL SULFATE 2.5MG/0.5ML INH NEB SOLN INH PRN; +EPINEPHrine INJ 1 MG/ML 1ML AMP IM PRN; +NS 1,000 ML IV SCH; +diphenhydrAMINE 25MG CAP PO ONE; +diphenhydrAMINE 50MG/ML VIAL IV PRN; +methylPREDNISolone 125MG 2ML VIAL IV PRN
[2022-08-11 07:37] VITALS: BP 136/73
[2022-08-11 08:48] VITALS: BP 150/79
== END 2022-08-11 09:00 | disposition home or self-care (01) ==
LOC: M INFU 07:30
PROVIDERS: ATTEND Internal Medicine Rheumatology
DX: M05.79 Rheumatoid arthritis with rheumatoid factor of multiple sites without organ or systems involvement (principal)
CPT/HCPCS: 96365; J0129

== ENCOUNTER 2022-09-08 07:15 | Outpatient (CLI) | payer MEDICARE, OTHER ==
[~2022-09-08] VITALS: Ht 177.8 cm; Wt 84.0 kg
[2022-09-08 07:15] VITALS: BP 123/81
[~2022-09-08 07:15] MED LIST changes: -ABATACEPT 750 MG OVER 30 MINUTES IV ONE; -ACETAMINOPHEN TAB 650MG DOSE (2X325MG) PO ONE; -ALBUTEROL SULFATE 2.5MG/0.5ML INH NEB SOLN INH PRN; -EPINEPHrine INJ 1 MG/ML 1ML AMP IM PRN; -NS 1,000 ML IV SCH; -diphenhydrAMINE 25MG CAP PO ONE; -diphenhydrAMINE 50MG/ML VIAL IV PRN; -methylPREDNISolone 125MG 2ML VIAL IV PRN
[2022-09-08] MEDS ORDERED: ACETAMINOPHEN TAB 650MG DOSE (2X325MG) PO ONE (07:30)
[2022-09-08] MEDS ORDERED: ABATACEPT 750 MG OVER 30 MINUTES IV ONE ×2 (07:30)
[2022-09-08] MEDS ORDERED: EPINEPHrine INJ 1 MG/ML 1ML AMP IM PRN (07:30)
[2022-09-08] MEDS ORDERED: diphenhydrAMINE 50MG/ML VIAL IV PRN (07:30)
[2022-09-08] MEDS ORDERED: methylPREDNISolone 125MG 2ML VIAL IV PRN (07:30)
[2022-09-08] MEDS ORDERED: ALBUTEROL SULFATE 2.5MG/0.5ML INH NEB SOLN INH PRN (07:30)
[2022-09-08] MEDS ORDERED: NS 1,000 ML IV SCH (07:30)
[2022-09-08] MEDS ORDERED: diphenhydrAMINE 25MG CAP PO ONE (07:30)
[2022-09-08 08:27] VITALS: BP 127/77
== END 2022-09-08 08:30 | disposition home or self-care (01) ==
LOC: M INFU 07:15
PROVIDERS: ATTEND Internal Medicine Rheumatology
DX: M05.79 Rheumatoid arthritis with rheumatoid factor of multiple sites without organ or systems involvement (principal)
CPT/HCPCS: 96365; J0129

== ENCOUNTER → 2022-10-23 | Outpatient (CLI) | payer MEDICARE, OTHER ==
[2022-10-23 09:22] LABS: BASO % 0.4 % (0.0-1.0); EOS # 0.1 10^3/uL (0.0-0.5); EOS % 1.1 % (0.0-3.0); HEMATOCRIT 44.7 % (42.0-52.0); HEMOGLOBIN 15.2 g/dl (13.5-17.5); LYMPH # 2.7 10^3/uL (1.5-5.0); MEAN CORPUSCULAR HEMOGLOBIN 32.8 pg (27.0-33.0); MEAN CORPUSCULAR VOLUME 96.3 fl (80.0-96.0); MONO # 0.7 10^3/uL (0.0-0.8); MONO % 8.5 % (2.0-8.0); NEUTROPHILS # 4.7 10^3/uL (1.5-8.5); NEUTROPHILS % 56.8 % (36.0-66.0); PLATELET COUNT, AUTOMATED 283 10^3/uL (150-450); RED BLOOD COUNT 4.64 10^6/uL (4.30-6.10); WHITE BLOOD COUNT 8.2 10^3/uL (4.0-10.0)
[2022-10-23 09:40] LABS: ERYTHROCYTE SEDIMENTATION RATE 13 mm/hr (0-20)
[2022-10-23 09:54] LABS: ALBUMIN 3.8 G/DL (3.2-5.2); ALKALINE PHOSPHATASE 68 U/L (46-116); ALT/SGPT 25 U/L (7.0-40); AST/SGOT 21 U/L (<34); BILIRUBIN,TOTAL 0.4 MG/DL (0.3-1.2); BLOOD UREA NITROGEN 22 MG/DL (9-23); CALCIUM LEVEL 9.6 MG/DL (8.3-10.6); CARBON DIOXIDE LEVEL 30 MMOL/L (20-31); CHLORIDE LEVEL 101 MMOL/L (98-107); CREATININE FOR GFR 1.05 MG/DL (0.70-1.30); GLOMERULAR FILTRATION RATE > 60.0 (>42); GLUCOSE, FASTING 164 MG/DL (74-106); POTASSIUM SERUM 4.6 MMOL/L (3.5-5.1); SODIUM LEVEL 137 MMOL/L (136-145); TOTAL PROTEIN 7.1 G/DL (5.7-8.2)
== END ==
LOC: M LAB 08:32
PROVIDERS: ATTEND Internal Medicine Rheumatology
DX: M05.79 Rheumatoid arthritis with rheumatoid factor of multiple sites without organ or systems involvement (principal)

== ENCOUNTER → 2023-01-11 | Outpatient (REF) | payer MEDICARE, OTHER | LOC: M SFHCRHEU 16:10 | PROVIDERS: ATTEND Internal Medicine Rheumatology | DX: M05.79 Rheumatoid arthritis with rheumatoid factor of multiple sites without organ or systems involvement (principal); I73.00 Raynaud's syndrome without gangrene; Z79.899 Other long term (current) drug therapy; M15.9 Polyosteoarthritis, unspecified; R21 Rash and other nonspecific skin eruption ==

== ENCOUNTER → 2023-01-11 | Outpatient (CLI) | payer MEDICARE, OTHER ==
[2023-01-11 18:20] LABS: BASO % 0.3 % (0.0-1.0); EOS # 0.1 10^3/uL (0.0-0.5); EOS % 1.3 % (0.0-3.0); HEMATOCRIT 47.8 % (42.0-52.0); HEMOGLOBIN 15.9 g/dl (13.5-17.5); LYMPH % 39.1 % (24.0-44.0); MEAN CORPUSCULAR HEMOGLOBIN 31.6 pg (27.0-33.0); MEAN CORPUSCULAR HGB CONC 33.3 g/dl (32.0-36.5); MONO # 0.6 10^3/uL (0.0-0.8); MONO % 8.1 % (2.0-8.0); NEUTROPHILS # 3.9 10^3/uL (1.5-8.5); NEUTROPHILS % 51.1 % (36.0-66.0); PLATELET COUNT, AUTOMATED 276 10^3/uL (150-450); RED BLOOD COUNT 5.03 10^6/uL (4.30-6.10); WHITE BLOOD COUNT 7.7 10^3/uL (4.0-10.0)
[2023-01-11 18:31] LABS: C REACTIVE PROTEIN QUANTITATIV < 0.40 MG/DL (<1.0)
[2023-01-11 18:33] LABS: ALBUMIN 3.9 G/DL (3.2-5.2); ALKALINE PHOSPHATASE 55 U/L (46-116); ALT/SGPT 30 U/L (7.0-40); AST/SGOT 20 U/L (<34); BILIRUBIN,TOTAL 0.4 MG/DL (0.3-1.2); BLOOD UREA NITROGEN 18 MG/DL (9-23); CALCIUM LEVEL 9.3 MG/DL (8.3-10.6); CARBON DIOXIDE LEVEL 28 MMOL/L (20-31); CHLORIDE LEVEL 101 MMOL/L (98-107); CREATININE FOR GFR 0.95 MG/DL (0.70-1.30); GLOMERULAR FILTRATION RATE > 60.0 (>42); GLUCOSE, FASTING 99 MG/DL (74-106); POTASSIUM SERUM 3.9 MMOL/L (3.5-5.1); SODIUM LEVEL 138 MMOL/L (136-145); TOTAL PROTEIN 7.3 G/DL (5.7-8.2)
[2023-01-11 19:00] LABS: ERYTHROCYTE SEDIMENTATION RATE 16 mm/hr (0-20)
== END ==
LOC: M LAB 16:30
PROVIDERS: ATTEND Internal Medicine Rheumatology
DX: M05.79 Rheumatoid arthritis with rheumatoid factor of multiple sites without organ or systems involvement (principal); I73.00 Raynaud's syndrome without gangrene; M15.9 Polyosteoarthritis, unspecified; R21 Rash and other nonspecific skin eruption; Z79.899 Other long term (current) drug therapy

== ENCOUNTER → 2023-03-18 | Outpatient (REF) | payer MEDICARE, OTHER | LOC: M SFHCRHEU 10:06 | PROVIDERS: ATTEND Internal Medicine Rheumatology | DX: Z53.9 Procedure and treatment not carried out, unspecified reason (principal) ==

== ENCOUNTER → 2024-04-27 | Outpatient (CLI) | payer MEDICARE, OTHER ==
[2024-04-27 11:44] LABS: HEMATOCRIT 46.7 % (42.0-52.0); HEMOGLOBIN 15.8 g/dl (13.5-17.5); MEAN CORPUSCULAR HGB CONC 33.8 g/dl (32.0-36.5); MEAN CORPUSCULAR VOLUME 91.7 fl (80.0-96.0); PLATELET COUNT, AUTOMATED 268 10^3/uL (150-450); RED BLOOD COUNT 5.09 10^6/uL (4.30-6.10); WHITE BLOOD COUNT 7.3 10^3/uL (4.0-10.0)
[2024-04-27 12:06] LABS: ALBUMIN 3.9 G/DL (3.2-5.2); ALKALINE PHOSPHATASE 62 U/L (40-129); ALT/SGPT 24 U/L (7.0-40); AST/SGOT 19 U/L (<34); BILIRUBIN,TOTAL 0.6 MG/DL (0.3-1.2); BLOOD UREA NITROGEN 20 MG/DL (9-23); CALCIUM LEVEL 10.3 MG/DL (8.3-10.6); CARBON DIOXIDE LEVEL 31 MMOL/L (20-31); CHLORIDE LEVEL 99 MMOL/L (98-107); CHOLESTEROL LEVEL 154 MG/DL (<200); CHOLESTEROL RISK RATIO 3.65 (<5); CREATININE FOR GFR 1.09 MG/DL (0.70-1.30); GLOMERULAR FILTRATION RATE > 60.0 (>42); GLUCOSE, FASTING 125 MG/DL (74-106); HDL CHOLESTEROL 42.1 MG/DL (>40); LDL CHOLESTEROL 94.9 MG/DL (<100); NON-HDL-C 111.9 MG/DL; POTASSIUM SERUM 4.2 MMOL/L (3.5-5.1); SODIUM LEVEL 136 MMOL/L (136-145); TOTAL PROTEIN 7.7 G/DL (5.7-8.2); TRIGLYCERIDES LEVEL 85 MG/DL (<150)
[2024-04-27 12:08] LABS: HEMOGLOBIN A1c 6.8 % (4.0-6.0)
== END ==
LOC: M LAB 10:51
PROVIDERS: ATTEND Physician Assistant
DX: E11.9 Type 2 diabetes mellitus without complications (principal)

== ENCOUNTER → 2025-03-13 | Outpatient (CLI) | payer MEDICARE, OTHER ==
[2025-03-13 11:36] LABS: ESTIMATED AVERAGE GLUCOSE 154.0 MG/DL (60-110)
== END ==
LOC: M LAB 08:00
PROVIDERS: ATTEND Physician Assistant
DX: E11.9 Type 2 diabetes mellitus without complications (principal)